=== PATIENT | female | born 1995 | race Caucasian/White ===

== ENCOUNTER 2021-04-19 23:19 | Emergency (ER) | payer MEDICAID, SELFPAY ==
[2021-04-20 01:23] VITALS: BP 118/60; PULSE 85; RESP 16; TEMP 37.3; O2SAT 100; BMI 33.3
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
[2021-04-20] MEDS: Bacitracin Oint 14 GM TUBE 1 APPL TOPICAL (02:21)
[2021-04-20] MEDS: Acetaminophen 325 MG TABLET 975 MG PO (02:21)
[2021-04-20] MEDS: Ketorolac Tromethamine 15 MG/ML VIAL IM (02:21)
--- NOTE | 2021-04-20 02:36 | PC.NURSE ---
per md instructions, right leg wrapped with keanu wrap after covering with bacitracin and telfa bandages.
== END 2021-04-20 03:27 | disposition home or self-care (01) ==
PROVIDERS: Emergency Provider Student in an Organized Health Care Education/Training Program
DX: T21.21XA Burn of second degree of chest wall, initial encounter (principal); T24.201A Burn of second degree of unspecified site of right lower limb, except ankle and foot, initial encounter; T31.0 Burns involving less than 10% of body surface; X12.XXXA Contact with other hot fluids, initial encounter; Y93.9 Activity, unspecified; Y92.9 Unspecified place or not applicable; Y99.9 Unspecified external cause status
CPT/HCPCS: 96372; 99283; 99284; J1885

== ENCOUNTER 2021-04-27 12:16 | Inpatient (IN) | payer MEDICAID, SELFPAY ==
[2021-04-27] VITALS (8 sets, daily range): BP systolic 110–146; BP diastolic 63–76; PULSE 60–98; RESP 14–18; TEMP 35.8–37.1; O2SAT 98–100; BMI 34.9
--- NOTE | ~2021-04-27 | US_ITS ---
EXAMINATION: US VENOUS ULTRASOUND WITH DOPPLER LOWER EXTREMITY, RIGHT CLINICAL INFORMATION: Edema. Pain. Skin changes. COMPARISON: None TECHNIQUE: Ultrasound of the deep veins is performed from the hip to the calf with compression sonography and color and pulse Doppler assessment. Spectral analysis with color-flow imaging is performed. FINDINGS: There is normal venous compression and respiratory variation and augmented flow. The visualized common femoral vein, superficial femoral vein, profunda femoral vein, popliteal vein, and the trifurcation region shows no evidence of deep venous thrombosis. There is no significant popliteal fossa cyst. There are morphologically normal-appearing lymph node with fatty nathaly in the soft tissues of the right groin and thigh. If the patient's symptoms persist, followup ultrasound in 5 days 7 days might be of value to exclude proximal propagation from a non-visualized calf vein. US/US venous duplex LE RT IMPRESSION: No DVT demonstrated in the right lower extremity.
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
[2021-04-27] MEDS: HYDROcodone Bit/Acetam 5/325 TABLET 1 TAB PO (14:13)
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
[2021-04-27 15:14] LABS: MANUAL DIFF FLAG NO
[2021-04-27 15:16] LABS: Basophils Percent Auto 0.3 % (0-2); Eosinophils Absolute Auto 0.1 X10*3/uL (0.0-0.4); Eosinophils Percent Auto 0.6 % (0-4); Hematocrit 38.8 % (37-47); Hemoglobin 13.1 g/dl (12.0-16.0); Imm Gran Abs Auto 0.05 X10*3/uL (0.00-0.03); Imm Gran Pct Auto 0.5 % (0.0-0.4); Lymphocytes Absolute Auto 1.6 X10*3/uL (1.2-4.9); Lymphocytes Percent Auto 16.9 % (20-40); Mean Corpuscular HGB Conc 33.8 g/dl (31.0-35.0); Mean Corpuscular Volume 91.9 fL (80-98); Mean Platelet Volume 9.3 fL (9.4-12.3); Monocytes Absolute Auto 0.7 X10*3/uL (0.1-1.2); Monocytes Percent Auto 7.7 % (2-11); Platelet Count 359 X10*3/uL (160-400); Red Blood Count 4.22 X10*6/uL (4.20-5.50); White Blood Count 9.5 X10*3/uL (4.8-10.8)
--- NOTE | 2021-04-27 15:21 | PHA.MEDREC ---
Pharmacy Consult ? Medication Reconciliation Pharmacy has completed the medication reconciliation. Patient currently on an ABX, cephalexin 500mg Q12Hr but unsure how many days left. No other remarkable issue for the provider to address. Karly Amador, PharmD
[2021-04-27] MEDS: Piperacillin Sodium/Tazobactam 3.375 GM in 0.9 % Sodium Chloride 50 ML IV ×2 (15:30→20:39)
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
[2021-04-27 15:38] LABS: Lactic Acid 3.8 mmol/L (0.5-2.0)
[2021-04-27 15:40] LABS: Alanine Aminotransferase 8 U/L (0-31); Albumin Level 4.3 g/dL (3.5-5.0); Alkaline Phosphatase 60 U/L (39-117); Anion Gap 18 (12-20); Aspartate Amino Transferase 13 U/L (5-31); Bilirubin Direct < 0.2 mg/dL (0.0-0.5); Bilirubin Total 0.3 mg/dL (0.0-1.0); Blood Urea Nitrogen 13 mg/dL (9-16); Calcium 9.8 mg/dL (8.4-10.2); Carbon Dioxide 22 mmol/L (22-29); Chloride 101 mmol/L (96-108); Estimated Glomerular Filt Rate > 60; Glucose Random 83 mg/dL (60-115); Magnesium 1.9 mg/dL (1.6-2.6); Potassium 4.2 mmol/L (3.3-5.1); Sodium 137 mmol/L (135-145); Total Protein 7.6 g/dL (6.5-8.0)
[2021-04-27] MEDS: Morphine Sulfate 4 MG/ML CARTRIDGE IVPUSH (15:46)
[2021-04-27] MEDS: 0.9 % Sodium Chloride 1,000 ML 999 ML IVCONT (15:46)
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
[2021-04-27 15:59] LABS: COVID-19 Test Negative (Negative); IDNOW Serial# 9DD0AD1C
[2021-04-27] MEDS: Silver Sulfadiazine 1 % Cream 20 GM TUBE 1 APPL TOPICAL (16:19)
--- NOTE | 2021-04-27 16:43 | PC.NURSE ---
Report called to YAQUELIN Argueta. Pt will bed going to room 371.
[2021-04-27 17:12] LABS: Reflex Lactate? Lactic Acid Added
--- NOTE | 2021-04-27 17:20 | PC.NURSE ---
Patient moved to room 371 via stretcher. Pt is alert and in no distress
[2021-04-27 18:48] LABS: ~Lactic Acid-LAB USE ONLY 2.6 mmol/L (0.5-2.0)
[2021-04-27 20:21] LABS: Reflex Lactate? 2 Y
[2021-04-27] MEDS: traZODone HCL 50 MG TABLET PO (20:39)
[2021-04-27] MEDS: Atorvastatin Calcium 10 MG TABLET PO (20:39)
[2021-04-27] MEDS: LORazepam 1 MG TABLET PO (20:39)
[2021-04-27] MEDS: diphenhydrAMINE HCL 25 MG TABLET 50 MG PO (22:32)
[2021-04-27] MEDS: 0.9 % Sodium Chloride Flush 3 ML SYRINGE IVFLUSH (23:27)
[2021-04-28] VITALS (8 sets, daily range): BP systolic 100–127; BP diastolic 53–60; PULSE 57–73; RESP 14–19; TEMP 36.3–36.5; O2SAT 96–100; BMI 34.9
[2021-04-28] MEDS: Morphine Sulfate 2 MG/ML CARTRIDGE IVPUSH ×4 (01:28→20:22)
[2021-04-28] MEDS: Piperacillin Sodium/Tazobactam 3.375 GM in 0.9 % Sodium Chloride 50 ML IV ×4 (03:09→21:04)
[2021-04-28 06:32] LABS: Hematocrit 35.6 % (37-47); Mean Corpuscular HGB Conc 33.7 g/dl (31.0-35.0); Mean Corpuscular Hemoglobin 30.8 pg (27.0-33.0); Mean Corpuscular Volume 91.3 fL (80-98); Mean Platelet Volume 9.3 fL (9.4-12.3); Platelet Count 350 X10*3/uL (160-400); Red Cell Distribution Width 12.2 % (11.0-16.0); White Blood Count 6.4 X10*3/uL (4.8-10.8)
[2021-04-28 07:21] LABS: Anion Gap 11 (12-20); Blood Urea Nitrogen 13 mg/dL (9-16); Carbon Dioxide 24 mmol/L (22-29); Chloride 105 mmol/L (96-108); Creatinine Clr Calc Pharmacy 134.4; Estimated Glomerular Filt Rate > 60; Glucose Random 102 mg/dL (60-115); Potassium 4.3 mmol/L (3.3-5.1); Sodium 136 mmol/L (135-145)
[2021-04-28] MEDS: Multivitamin TABLET 1 TAB PO (07:27)
[2021-04-28] MEDS: HaloperidoL 5 MG TABLET PO (07:27)
[2021-04-28] MEDS: 0.9 % Sodium Chloride Flush 3 ML SYRINGE IVFLUSH ×3 (07:27→21:05)
[2021-04-28] MEDS: Divalproex Sodium 500 MG TABLET.DR PO (07:27)
[2021-04-28] MEDS: Levothyroxine Sodium 100 MCG TABLET PO (07:27)
[2021-04-28] MEDS: Sertraline HCL 100 MG TABLET PO (07:27)
[2021-04-28 07:39] LABS: Calcium 9.1 mg/dL (8.4-10.2)
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
[2021-04-28] MEDS: Silver Sulfadiazine 1 % Cream 20 GM TUBE 1 APPL TOPICAL (13:29)
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
[2021-04-28] MEDS: traZODone HCL 50 MG TABLET PO (21:04)
[2021-04-28] MEDS: Atorvastatin Calcium 10 MG TABLET PO (21:04)
[2021-04-29 03:07] VITALS: BP 106/56; PULSE 60; RESP 16; TEMP 36.6; O2SAT 97
[2021-04-29] MEDS: Piperacillin Sodium/Tazobactam 3.375 GM in 0.9 % Sodium Chloride 50 ML IV ×2 (03:10→09:24)
[2021-04-29 07:31] VITALS: BP 102/59; PULSE 59; RESP 17; TEMP 36.4; O2SAT 95
[2021-04-29] MEDS: Levothyroxine Sodium 100 MCG TABLET PO (09:22)
[2021-04-29] MEDS: HaloperidoL 5 MG TABLET PO (09:22)
[2021-04-29] MEDS: Multivitamin TABLET 1 TAB PO (09:22)
[2021-04-29] MEDS: Sertraline HCL 100 MG TABLET PO (09:22)
[2021-04-29] MEDS: Divalproex Sodium 500 MG TABLET.DR PO (09:22)
[2021-04-29] MEDS: 0.9 % Sodium Chloride Flush 3 ML SYRINGE IVFLUSH (09:24)
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
[2021-04-29 11:24] VITALS: BP 116/56; PULSE 62; RESP 19; TEMP 36.1; O2SAT 97
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
--- NOTE | 2021-05-01 14:50 | MHC.CM.PN ---
Received telephone call from Sherin of the [employer]. She stated a oral report was never called, so they don't have the case on file. T/W called [phone] again to give verbal report. Case#[id number]
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
== END 2021-04-29 14:36 | disposition home health service (06) | DRG 844 ==
LOC: HO.ED 15:24 → HO.S3 16:03
PROVIDERS: Admitting Provider Internal Medicine; Emergency Provider Emergency Medicine; PCP Internal Medicine; Visit Provider Internal Medicine
DX: T24.001A Burn of unspecified degree of unspecified site of right lower limb, except ankle and foot, initial encounter (principal); L03.115 Cellulitis of right lower limb; T21.01XA Burn of unspecified degree of chest wall, initial encounter; E03.9 Hypothyroidism, unspecified; E78.5 Hyperlipidemia, unspecified; R62.50 Unspecified lack of expected normal physiological development in childhood; Y27.2XXA Contact with hot fluids, undetermined intent, initial encounter; Y93.9 Activity, unspecified; Y92.9 Unspecified place or not applicable; Y99.9 Unspecified external cause status; Z20.822 Contact with and (suspected) exposure to COVID-19; Z79.890 Hormone replacement therapy; Z79.899 Other long term (current) drug therapy
CPT/HCPCS: 36415; 80048; 80076; 83605; 83735; 85025; 85027; 87040; 87635; 93971; 99222; 99231; 99285; J2270; J2543; Q0163

== ENCOUNTER 2021-05-16 10:17 | Outpatient (REF) | payer MEDICAID, SELFPAY ==
[2021-05-16 11:13] LABS: MANUAL DIFF FLAG NO
[2021-05-16 11:25] LABS: Basophils Percent Auto 0.2 % (0-2); Eosinophils Absolute Auto 0.1 X10*3/uL (0.0-0.4); Eosinophils Percent Auto 1.4 % (0-4); Hematocrit 40.1 % (37-47); Hemoglobin 13.3 g/dl (12.0-16.0); Imm Gran Abs Auto 0.02 X10*3/uL (0.00-0.03); Imm Gran Pct Auto 0.3 % (0.0-0.4); Lymphocytes Absolute Auto 1.5 X10*3/uL (1.2-4.9); Lymphocytes Percent Auto 25.7 % (20-40); Mean Corpuscular HGB Conc 33.2 g/dl (31.0-35.0); Mean Corpuscular Hemoglobin 31.1 pg (27.0-33.0); Mean Corpuscular Volume 93.7 fL (80-98); Mean Platelet Volume 10.5 fL (9.4-12.3); Monocytes Absolute Auto 0.5 X10*3/uL (0.1-1.2); Monocytes Percent Auto 9.1 % (2-11); Neutrophils Absolute Auto 3.8 X10*3/uL (2.0-8.3); Neutrophils Percent Auto 63.3 % (45-73); Platelet Count 235 X10*3/uL (160-400); Red Blood Count 4.28 X10*6/uL (4.20-5.50); Red Cell Distribution Width 12.9 % (11.0-16.0); White Blood Count 5.9 X10*3/uL (4.8-10.8)
[2021-05-16 12:15] LABS: Thyroid Stimulating Hormone 0.16 uIU/mL (0.32-4.0)
[2021-05-16 12:30] LABS: Alanine Aminotransferase 12 U/L (0-31); Alkaline Phosphatase 57 U/L (39-117); Anion Gap 14 (12-20); Aspartate Amino Transferase 12 U/L (5-31); Bilirubin Total 0.4 mg/dL (0.0-1.0); Blood Urea Nitrogen 11 mg/dL (9-16); Calcium 8.9 mg/dL (8.4-10.2); Carbon Dioxide 23 mmol/L (22-29); Chloride 106 mmol/L (96-108); Cholesterol 162 mg/dL; Estimated Glomerular Filt Rate > 60; Glucose Random 100 mg/dL (60-115); HDL Cholesterol 48 mg/dL; LDL Cholesterol Calculated 94 mg/dl; Potassium 4.8 mmol/L (3.3-5.1); Sodium 138 mmol/L (135-145); Total Protein 6.7 g/dL (6.5-8.0); Triglycerides 102 mg/dL
== END 2021-05-16 10:18 | disposition home or self-care (01) ==
LOC: HO.LAB 10:17
PROVIDERS: PCP Internal Medicine; Visit Provider Internal Medicine
DX: Z00.01 Encounter for general adult medical examination with abnormal findings (principal); T24.039 Burn of unspecified degree of unspecified lower leg; E03.9 Hypothyroidism, unspecified; E78.00 Pure hypercholesterolemia, unspecified; F31.9 Bipolar disorder, unspecified; G31.84 Mild cognitive impairment of uncertain or unknown etiology; G40.509 Epileptic seizures related to external causes, not intractable, without status epilepticus
CPT/HCPCS: 36415; 80053; 80061; 84443; 85025

== ENCOUNTER 2023-03-29 02:41 | Emergency (ER) | payer MEDICAID, SELFPAY ==
[2023-03-29] VITALS (8 sets, daily range): BP systolic 132–141; BP diastolic 73–87; PULSE 107–116; RESP 17–18; TEMP 36.6; O2SAT 96–98; BMI 32.6
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
[2023-03-29 03:14] LABS: MANUAL DIFF FLAG NO
[2023-03-29 03:18] LABS: Basophils Percent Auto 0.3 % (0-2); Eosinophils Percent Auto 0.2 % (0-4); Hematocrit 38.5 % (37.0-47.0); Imm Gran Abs Auto 0.01 X10*3/uL (0.00-0.03); Imm Gran Pct Auto 0.1 % (0.0-0.4); Lymphocytes Absolute Auto 1.7 X10*3/uL (1.2-4.9); Lymphocytes Percent Auto 19.4 % (20-40); Mean Corpuscular HGB Conc 33.8 g/dl (31.0-35.0); Mean Corpuscular Hemoglobin 29.8 pg (27.0-33.0); Mean Corpuscular Volume 88.3 fL (80.0-98.0); Mean Platelet Volume 9.7 fL (9.4-12.3); Monocytes Absolute Auto 0.7 X10*3/uL (0.1-1.2); Monocytes Percent Auto 7.3 % (2-11); Neutrophils Absolute Auto 6.5 x10*3/uL (2.0-8.3); Neutrophils Percent Auto 72.7 % (45-73); Platelet Count 272 X10*3/uL (160-400); Red Blood Count 4.36 X10*6/uL (4.20-5.50); Red Cell Distribution Width 11.9 % (11.0-16.0); White Blood Count 8.9 X10*3/uL (4.8-10.8)
[2023-03-29] MEDS: Nicotine 14 MG PATCH.TD24 TRANSDERMA (03:23)
[2023-03-29 03:31] LABS: COVID-19 Test Negative (Negative); IDNOW Serial# 6674DD1D
[2023-03-29 03:41] LABS: Alanine Aminotransferase 27 U/L (0-31); Albumin Level 4.1 g/dL (3.5-5.0); Alkaline Phosphatase 83 U/L (39-117); Anion Gap 17 (12-20); Aspartate Amino Transferase 20 U/L (5-31); Bilirubin Total 0.3 mg/dL (0.0-1.0); Blood Urea Nitrogen 9 mg/dL (9-16); Calcium 9.5 mg/dL (8.4-10.2); Carbon Dioxide 21 mmol/L (22-29); Chloride 106 mmol/L (96-108); Creatinine Clr Calc Pharmacy 124.6; Estimated Glomerular Filt Rate > 60; Ethanol < 10 mg/dL; Glucose Random 124 mg/dL (60-115); Sodium 140 mmol/L (135-145); Valproate < 12.5 mcg/mL (50.0-100.0)
[2023-03-29] MEDS: LORazepam 1 MG TABLET PO ×2 (03:56→09:27)
[2023-03-29 04:20] LABS: Appearance Urine Clear; Color Urine Yellow; Glucose Urine UA Negative (Negative); Leukocyte Esterase Urine Negative (Negative); Nitrite Urine Negative (Negative); Urine Blood Negative (Negative); Urine Ketones Negative (Negative); Urine Protein Negative (Neg-Trace)
[2023-03-29 04:22] LABS: UPreg QC Valid YES; Urine Pregnancy NEGATIVE (NEGATIVE)
[2023-03-29 04:30] LABS: Amphetamine Screen Urine Not Detected (Not Detect); Barbiturates, Urine Not Detected (Not Detect); Benzodiazepines Screen Urine Not Detected (Not Detect); Cannabinoid Screen Urine Not Detected (Not Detect); Cocaine Screen Urine Not Detected (Not Detect); Fentanyl, urine POSITIVE (Not Detect); Opiate Screen Urine Not Detected (Not Detect); Phencyclidine Screen Urine Not Detected (Not Detect)
[2023-03-29] MEDS: diphenhydrAMINE HCL 50 MG/ML VIAL IM (04:50)
[2023-03-29] MEDS: LORazepam 2 MG/ML VIAL IM (04:50)
[2023-03-29] MEDS: Haloperidol Lactate 5 MG/ML VIAL IM (04:50)
--- NOTE | 2023-03-29 05:19 | PC.NURSE ---
Staff reported that patient was trying to cut her fore arm with pitcher lid, refused to handover the the lid, combative with staff member, provider notified/ordered physical and chemical restraint, Ativan 2 mg IM, Benadryl 50 mg IM, and Haldol 5 mg IM administered at 0450 pending effect, VSS, communication challenging due to non availability of burnt lime drawer at this time, patient is on 1:1 for per safety protocol, Ativan 1 mg PO administered at 0356 had no effect, behavior unpredictable with labile affect, care consult ordered/pending evaluation, will continue to monitor.
--- NOTE | 2023-03-29 06:09 | PC.NURSE ---
Patient in bed appears sleeping, Restraint discontinued at 0605, ROM intact, patient doesn't want to share her information to any family members, med rec completed/pending provider's approval, will continue to monitor.
[2023-03-29] MEDS: Atorvastatin Calcium 10 MG TABLET PO (09:27)
[2023-03-29] MEDS: HaloperidoL 5 MG TABLET PO (09:27)
[2023-03-29] MEDS: Sertraline HCL 100 MG TABLET PO (09:27)
[2023-03-29] MEDS: Multivitamin TABLET 1 TAB PO (09:27)
[2023-03-29] MEDS: Divalproex Sodium 250 MG TABLET.DR PO (09:27)
--- NOTE | 2023-03-29 10:00 | PHA.MEDREC ---
Pharmacy Consult ? Medication Reconciliation Pharmacy has completed the medication reconciliation.
== END 2023-03-29 14:31 | disposition home or self-care (01) ==
PROVIDERS: Emergency Provider Emergency Medicine
DX: F32.A Depression, unspecified (principal); F41.9 Anxiety disorder, unspecified; Z20.822 Contact with and (suspected) exposure to COVID-19; F88 Other disorders of psychological development; Z79.899 Other long term (current) drug therapy
CPT/HCPCS: 36415; 80053; 80164; 80307; 81003; 81025; 85025; 87635; 96372; 99285; J1200; J2060; S9485

== ENCOUNTER 2023-05-11 01:45 | Emergency (ER) | payer MEDICAID, SELFPAY ==
[2023-05-11 01:47] VITALS: BP 186/88; PULSE 82; RESP 18; TEMP 37; O2SAT 100; BMI 42.5
--- NOTE | 2023-05-11 02:16 | PC.NURSE ---
c/o abd pain since yesterday night denies constipation/diarrhea admits to vomiting x1 and nausea pt states she ate a sandwich that had deli meat that was many hours old no apparent distress alert and oriented able to make needs known ambulates safely/independently parents at bedside
--- NOTE | 2023-05-11 03:13 | ED.ABDPAIN ---
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 Patient states that she then vomited in the parking lot and feels much better and denies any further discomfort at this time. Related Data Home Medications Medication Instructions Recorded Confirmed trazodone 50 mg tablet 50 mg PO BEDTIME 04/27/21 03/29/23 amitriptyline 10 mg tablet 10 mg PO BEDTIME 03/29/23 03/29/23 atorvastatin 10 mg tablet 10 mg PO DAILY 03/29/23 03/29/23 divalproex 250 mg tablet,delayed 250 mg PO BID 03/29/23 03/29/23 release haloperidol 5 mg tablet 5 mg PO BID 03/29/23 03/29/23 hydroxyzine pamoate 50 mg capsule 50 mg PO BID PRN Anxiety 03/29/23 03/29/23 levothyroxine 100 mcg tablet 100 mcg PO DAILY@0600 03/29/23 03/29/23 lorazepam 1 mg tablet 1 mg PO TID 03/29/23 03/29/23 multivitamin 1 tab PO DAILY 03/29/23 03/29/23 sertraline 100 mg tablet 100 mg PO DAILY 03/29/23 03/29/23 Allergies Allergy/AdvReac Type Severity Reaction Status Date / Time No Known Allergies Allergy Verified 04/27/21 12:22 Review of Systems Review of Systems Pertinent positives and negatives as stated in HPI PMFSH Past Medical History Source: nursing notes reviewed Medical History Cognitive developmental delay HLD (hyperlipidemia) Hypothyroid Mood disorder Social History Social History Household Members: Family Housing: Apartment Do you presently have visiting nurse or other home services: No Alcohol intake: never Patient Tobacco Use Status: Never used Tobacco Substance Use Type: [employer] Advance Directives: No Advance Directives Information Provided: No service: No Current occupational status: disabled Physical Exam ED Vital Signs: Vital Signs - 24 hr 05/11/23 01:47 Temperature 98.6 F Pulse Rate 82 Respiratory Rate 18 Blood Pressure 186/88 H Pulse Oximetry 100 Oxygen Delivery Method Room Air BMI result Body Mass Index 42.5 VITAL SIGNS: Reviewed. GENERAL: Well developed, well nourished, in no acute distress. HEAD: Normocephalic/atraumatic EYES: PERRLA, EOMI EARS: Ext canals without abnormality NOSE: Nares patent bilateral OROPHARYNX: no oral lesions noted, posterior pharynx clear NECK: Supple, no adenopathy LUNGS: Normal breath sounds. No adventitious sounds or accessory muscle use. SpO2<100> CARDIOVASCULAR: Regular rate and rhythm without noted murmurs ABDOMEN: Soft, non-tender, non-distended with bowel sounds. MUSCULOSKELETAL: No tenderness, deformities, or effusions noted on gross inspection. EXTREMITIES: No cyanosis, clubbing or edema. SKIN: Inspection of the skin reveals no rashes NEUROLOGIC: Alert and oriented x 4. Strength and sensation to light touch were grossly intact x 4. Medical Decision Making Medical Decision Making MDM Narrative: This is a 27-year-old female with history and clinical presentation most consistent with contaminated food. This was sudden onset and after vomiting patient states she is feeling much better and is otherwise hemodynamically stable, afebrile. I did review the laboratory studies which are negative for evidence of leukocytosis/left shift/anemia and chemistries are grossly within normal limits with a urinalysis negative for evidence of UTI. It radiates EG is negative. Patient is otherwise stable for discharge to home. Patient is noted tolerate oral intake prior to discharge. Differential Diagnosis Please see the discussion above Lab Data Please see the discussion above 05/11/23 02:13 05/11/23 02:13 Labs: Lab Results 05/11/23 05/11/23 05/11/23 Range/Units 02:13 02:13 02:13 WBC 6.5 (4.8-10.8) X10*3/uL RBC 4.18 L (4.20-5.50) X10*6/uL Hgb 12.6 (12.0-16.0) g/dl Hct 38.1 (37.0-47.0) % MCV 91.1 (80.0-98.0) fL MCH 30.1 (27.0-33.0) pg MCHC 33.1 (31.0-35.0) g/dl RDW 12.5 (11.0-16.0) % Plt Count 264 (160-400) X10*3/uL MPV 9.8 (9.4-12.3) fL Immature Gran % (Auto) 0.3 (0.0-0.4) % Neut % (Auto) 56.7 (45-73) % Lymph % (Auto) 33.9 (20-40) % [place] % (Auto) 8.3 (2-11) % Eos % (Auto) 0.5 (0-4) % Baso % (Auto) 0.3 (0-2) % Lymph # (Auto) 2.2 (1.2-4.9) X10*3/uL [place] # (Auto) 0.5 (0.1-1.2) X10*3/uL Eos # (Auto) 0.0 (0.0-0.4) X10*3/uL Baso # (Auto) 0.0 (0.0-0.2) X10*3/uL Abs Immat Gran (auto) 0.02 (0.00-0.03) X10*3/uL Absolute Neuts (auto) 3.7 (2.0-8.3) x10*3/uL Absolute Nucleated RBC 0.000 (0.0-0.012) X10*3/uL Nucleated RBC % (auto) 0.0 (0.0-0.2) /100WBC Sodium 142 (135-145) mmol/L Potassium 4.6 (3.3-5.1) mmol/L Chloride 107 (96-108) mmol/L Carbon Dioxide 25 (22-29) mmol/L Anion Gap 15 (12-20) BUN 12 (9-16) mg/dL Creatinine 0.76 (0.5-1.4) mg/dL Estim Creat Clear Calc 131.6 Estimated GFR > 60 Random Glucose 108 (60-115) mg/dL Calcium 9.8 (8.4-10.2) mg/dL Total Bilirubin 0.2 (0.0-1.0) mg/dL AST 19 (5-31) U/L ALT 26 (0-31) U/L Alkaline Phosphatase 83 (39-117) U/L Total Protein 7.1 (6.5-8.0) g/dL Albumin 4.0 (3.5-5.0) g/dL Lipase 17 (8-78) U/L Beta HCG, Quant < 2 mIU/mL Urine Color Urine Appearance Urine pH (5.0-9.0) Ur Specific [place] (1.005-1.025) Urine Protein (Neg-Trace) mg/dL Urine Glucose (UA) (Negative) mg/dL Urine Ketones (Negative) mg/dL Urine Blood (Negative) Urine Nitrite (Negative) Ur Leukocyte Esterase (Negative) 05/11/23 Range/Units 02:34 WBC (4.8-10.8) X10*3/uL RBC (4.20-5.50) X10*6/uL Hgb (12.0-16.0) g/dl Hct (37.0-47.0) % MCV (80.0-98.0) fL MCH (27.0-33.0) pg MCHC (31.0-35.0) g/dl RDW (11.0-16.0) % Plt Count (160-400) X10*3/uL MPV (9.4-12.3) fL Immature Gran % (Auto) (0.0-0.4) % Neut % (Auto) (45-73) % Lymph % (Auto) (20-40) % [place] % (Auto) (2-11) % Eos % (Auto) (0-4) % Baso % (Auto) (0-2) % Lymph # (Auto) (1.2-4.9) X10*3/uL [place] # (Auto) (0.1-1.2) X10*3/uL Eos # (Auto) (0.0-0.4) X10*3/uL Baso # (Auto) (0.0-0.2) X10*3/uL Abs Immat Gran (auto) (0.00-0.03) X10*3/uL Absolute Neuts (auto) (2.0-8.3) x10*3/uL Absolute Nucleated RBC (0.0-0.012) X10*3/uL Nucleated RBC % (auto) (0.0-0.2) /100WBC Sodium (135-145) mmol/L Potassium (3.3-5.1) mmol/L Chloride (96-108) mmol/L Carbon Dioxide (22-29) mmol/L Anion Gap (12-20) BUN (9-16) mg/dL Creatinine (0.5-1.4) mg/dL Estim Creat Clear Calc Estimated GFR Random Glucose (60-115) mg/dL Calcium (8.4-10.2) mg/dL Total Bilirubin (0.0-1.0) mg/dL AST (5-31) U/L ALT (0-31) U/L Alkaline Phosphatase (39-117) U/L Total Protein (6.5-8.0) g/dL Albumin (3.5-5.0) g/dL Lipase (8-78) U/L Beta HCG, Quant mIU/mL Urine Color Yellow Urine Appearance Clear Urine pH 6.5 (5.0-9.0) Ur Specific [place] 1.010 (1.005-1.025) Urine Protein Negative (Neg-Trace) mg/dL Urine Glucose (UA) Negative (Negative) mg/dL Urine Ketones Negative (Negative) mg/dL Urine Blood Negative (Negative) Urine Nitrite Negative (Negative) Ur Leukocyte Esterase Negative (Negative) Discharge Plan Discharge Clinical Impression: Food poisoning Patient Disposition: Home, Self-Care Instructions: Food Poisoning (ED) Additional Instructions: Regrese a la radha de emergencias si los s?ntomas empeoran. Return to the ER for any worsening symptoms. Prescriptions: No Action trazodone 50 mg Tablet 50 mg PO BEDTIME multivitamin Tablet 1 tab PO DAILY haloperidol 5 mg tablet 5 mg PO BID divalproex 250 mg tablet,delayed release (DR/EC) 250 mg PO BID atorvastatin 10 mg tablet 10 mg PO DAILY sertraline 100 mg tablet 100 mg PO DAILY hydroxyzine pamoate 50 mg capsule 50 mg PO BID PRN (Reason: Anxiety) amitriptyline 10 mg tablet 10 mg PO BEDTIME lorazepam 1 mg tablet 1 mg PO TID levothyroxine 100 mcg tablet 100 mcg PO DAILY@0600 Print Language: Macedonian
--- NOTE | 2023-05-11 03:31 | PC.NURSE ---
warm bath wipes given to pt to clean and dry from vomitus episode
[2023-05-11 03:44] VITALS: BP 128/72; PULSE 67; RESP 19; TEMP 37; O2SAT 99
--- NOTE | 2023-05-11 03:51 | PC.NURSE ---
denies pain at this time
--- NOTE | 2023-05-11 03:51 | PC.NURSE ---
Discharge instructions given and explained to pt No apparent distress aox4 All of pt's questions answered Ambulates safely and independently
== END 2023-05-11 03:53 | disposition home or self-care (01) ==
PROVIDERS: Emergency Provider Student in an Organized Health Care Education/Training Program
DX: A05.9 Bacterial foodborne intoxication, unspecified (principal); E78.5 Hyperlipidemia, unspecified; Z79.899 Other long term (current) drug therapy
CPT/HCPCS: 36415; 80053; 81003; 83690; 84702; 85025; 99283; 99284

== ENCOUNTER 2023-09-12 10:00 | Outpatient (REF) | payer MEDICAID, SELFPAY ==
[2023-09-12 11:13] LABS: Valproate 21.1 mcg/mL (50.0-100.0)
[2023-09-12 11:18] LABS: Alanine Aminotransferase 24 U/L (0-31); Albumin Level 4.1 g/dL (3.5-5.0); Alkaline Phosphatase 77 U/L (39-117); Aspartate Amino Transferase 18 U/L (5-31); Bilirubin Direct 0.1 mg/dL (0.0-0.5); Bilirubin Total 0.3 mg/dL (0.0-1.0); Total Protein 7.4 g/dL (6.5-8.0)
== END 2023-09-12 10:01 | disposition home or self-care (01) ==
LOC: HO.LAB 10:00
PROVIDERS: Visit Provider Nurse Practitioner
DX: Z79.899 Other long term (current) drug therapy (principal)
CPT/HCPCS: 36415; 80076; 80164

== ENCOUNTER 2024-03-25 14:51 | Emergency (ER) | payer MEDICAID, SELFPAY ==
--- NOTE | ~2024-03-25 | XR_ITS ---
EXAMINATION: XR CHEST CLINICAL INFORMATION: chest pain and abnormal heart rate. COMPARISON: None. TECHNIQUE: PA and lateral views of the chest were obtained. FINDINGS: The cardiac and mediastinal contours is normal. There is no pulmonary vascular congestion. There is no acute airspace disease or pleural effusion. XR/XR chest 2V IMPRESSION: Normal chest.
--- NOTE | 2024-03-25 14:53 | ECG_ITS ---
Test Reason : CHEST PAIN Blood Pressure : / mmHG Vent. Rate : 106 BPM Atrial Rate : 106 BPM P-R Int : 124 ms QRS Dur : 084 ms QT Int : 338 ms P-R-T Axes : 050 024 -13 degrees QTc Int : 448 ms Sinus tachycardia Nonspecific T wave abnormality Abnormal ECG No previous ECGs available Referred By: Luis E Braun Electronically Signed By:ABBY DEGROOT MD
[2024-03-25 15:02] VITALS: BP 137/94; PULSE 112; RESP 14; TEMP 36.7; O2SAT 96; BMI 43.6
--- NOTE | 2024-03-25 15:04 | ED_ITS ---
HPI - General Adult General Chief complaint: Chest Pain Stated complaint: Chest pain Time Seen by Provider: 03/25/24 18:22 Source: patient and RN notes reviewed Mode of arrival: ambulatory Limitations: no limitations History of Present Illness ED Provider: Moriah Hoyt PA-C HPI narrative: This is a 28-year-old female, with a history of hypothyroidism, hyperlipidemia, and mood disorder, who presents emergency department with complaints of sudden onset left-sided chest pain which started 2 hours prior to arrival. Patient states that she developed a sharp left-sided pleuritic chest pain which occurred after eating lunch. She also states that she felt as though her heart was racing - states that upon arrival this feeling has since resolved but is still experiencing pleuritic chest pain. She states that the pain has been constant does not radiate. She states that she does not want to take deep breaths as this causes her to have worsening symptoms. Denies history of similiar symptoms in the past. She denies any fevers, chills, cough, abdominal pain, nausea, vomiting or diarrhea. She does smoke cigarettes. Denies any recent surgery, hospitalizations or travel. Denies history of blood clots. She has not on control. Denies family medical history of clotting disorders. Denies family medical history of cardiac problems. No other complaints or concerns at this time. MD complaint: Pleuritic chest pain Onset (ago): hour(s) Radiation: non-radiation Severity: moderate Quality: aching Pain Consistency: constant Relieving factors: none Exacerbating factors: none Associated symptoms: denies other symptoms Treatments prior to arrival: none Related Data Home Medications ?Medication ?Instructions ?Recorded ?Confirmed trazodone 50 mg tablet 50 mg PO BEDTIME 04/27/21 03/29/23 amitriptyline 10 mg tablet 10 mg PO BEDTIME 03/29/23 03/29/23 atorvastatin 10 mg tablet 10 mg PO DAILY 03/29/23 03/29/23 divalproex 250 mg tablet,delayed 250 mg PO BID 03/29/23 03/29/23 release haloperidol 5 mg tablet 5 mg PO BID 03/29/23 03/29/23 hydroxyzine pamoate 50 mg capsule 50 mg PO BID PRN Anxiety 03/29/23 03/29/23 levothyroxine 100 mcg tablet 100 mcg PO DAILY@0600 03/29/23 03/29/23 lorazepam 1 mg tablet 1 mg PO TID 03/29/23 03/29/23 multivitamin 1 tab PO DAILY 03/29/23 03/29/23 sertraline 100 mg tablet 100 mg PO DAILY 03/29/23 03/29/23 Allergies Allergy/AdvReac Type Severity Reaction Status Date / Time No Known Allergies Allergy Verified 03/25/24 15:07 Review of Systems 2 Review of Systems: Yes all other systems are reviewed and are negative Constitutional: Constitutional: Reports as per [facility] Past Medical History Attestation statement: The following information was validated with the patient. Medical History Mood disorder HLD (hyperlipidemia) Hypothyroid Cognitive developmental delay Social History Social History Household Members: Family Housing: Apartment Do you presently have visiting nurse or other home services: No Alcohol intake: never Patient Tobacco Use Status: Never used Tobacco Substance Use Type: Club/[employer] Drugs Advance Directives: No Advance Directives Information Provided: No Do you have a plan to hurt others: No Plan service: No Current occupational status: disabled Physical Exam ED Vital Signs: Vital Signs - 24 hr 03/25/24 15:02 03/25/24 19:27 03/25/24 21:22 Temperature 98.0 F 98.2 F 98.4 F Pulse Rate 112 H 89 86 Respiratory Rate 14 16 18 Blood Pressure 137/94 H 119/63 136/81 Pulse Oximetry 96 95 98 Oxygen Delivery Method Room Air Room Air Room Air 03/25/24 21:23 Temperature 98.4 F Pulse Rate 86 Respiratory Rate 18 Blood Pressure 136/81 Pulse Oximetry 98 Oxygen Delivery Method Room Air BMI result Body Mass Index 43.6 Const General: cooperative, comfortable and no acute distress Orientation/consciousness: patient oriented x3 Limitations: no limitations HENMT Head: Yes normal to inspection, Yes normocephalic and Yes atraumatic Ears: hearing grossly normal bilaterally General nose exam: Normal external nose present Face and sinus: Yes normal facial exam Mouth: Normal oral and palatal mucosa present, oropharynx normal and moist mucous membranes Throat: Yes posterior oropharynx normal Eyes General: appearance normal, both eyes and all related structures Eyelids: Yes eyelids normal Conjunctivae: conjunctivae normal Sclerae: sclerae normal Pupils: Equal, round and reactive pupils present EOM: EOMs intact bilaterally Neck Neck: Yes normal visual inspection, Yes full ROM and Yes no lymphadenopathy Lymphatic: no lymphadenopathy noted Chest Other: Reproducible left-sided chest pain with palpation. No flail chest, no obvious deformity or swelling. No erythema. Chest palpation & inspection: normal inspection of the chest Resp Effort & Inspection: normal respiratory effort and able to speak in complete sentences Auscultation: clear to auscultation bilaterally, no crackles, no rales, no rhonchi and no wheezes Cardio Rate: regular rate Rhythm: regular rhythm Heart sounds: S1 normal heart sound present and S2 normal heart sound present GI Inspection: Yes normal to inspection Skin General skin exam: no rashes or lesions noted Trauma: no lacerations or abrasions Wounds: no wounds Neuro General: patient oriented x3 and moves all extremities Cranial nerves: Yes Equal, round and reactive pupils present Extrem General: Yes normal to inspection Right upper extremity: normal to inspection Left upper extremity: normal to inspection Right lower extremity: normal to inspection Left lower extremity: normal to inspection Course Course Course Narrative: RME- 28 year old female with history of obesity, HLD, hypothyroid, mood disorder presents for evaluation of tachycardia and chest pain. Symptoms started about 2 hours ago. Plan for EKG, labs, chest x-ray. Reevaluation(s) Reevaluation #1: D-dimer negative, 2nd troponin flat. Patient has a heart score of 0 therefore cardiac etiology is unlikely. Symptoms likely musculoskeletal in nature. Patient no longer tachycardic, patient is feeling much better after receiving ibuprofen and Ativan. Workup today reassuring. Discussed findings with patient, family, with dental assistant at bedside. Patient given return precautions. She understands agrees with plan. Patient stable for discharge. Medications Administered Discontinued Medications Generic Name Dose Route Start Last Admin Trade Name Freq PRN Reason Stop Dose Admin Ibuprofen 600 mg 03/25/24 20:46 03/25/24 20:52 Ibuprofen 600 Mg Tablet PO 03/25/24 20:47 600 mg ONCE ONE Administration Lorazepam 1 mg 03/25/24 20:43 03/25/24 20:52 Lorazepam 1 Mg Tablet PO 03/25/24 20:44 1 mg ONCE ONE Administration Medical Decision Making Medical Decision Making [facility] Narrative: This is a 28-year-old female, with a history of mood disorder, hyperlipidemia, and hypothyroidism, who presents emergency department complaints of atraumatic left-sided pleuritic chest pressure which occurred after eating lunch. She also reports episode of tachycardia. On arrival, patient tachycardic at 112 beats per minute, mildly hypertensive at 137/94, all other vital signs within normal limits. Patient is anxious appearing, otherwise appears to be in no acute distress. She is speaking in full sentences. She has no cardiac history. She has a smoker, otherwise no other risk factors to suggest PE. Given pleuritic chest pain as well as tachycardia, will obtain D-dimer for evaluation. EKG, chest x-ray, and labs were also obtained. Differential Diagnosis Differential Diagnoses: The differential diagnosis associated with the presentation includes ACS-unlikely, SVT, dehydration, electrolyte derangement, PE, pneumothorax- unlikely, thyroid storm Admission/Observation Consideration of admission/observation: Escalation of care including admission/observation considered Escalation of care including admission/observation considered however given workup today not warranted at this time. Lab Data MDM Lab Attestation statement: I reviewed the patient's lab results. No leukocytosis, stable H&H, mild hyperglycemia at 130, initial troponin less than 2.7. TSH mildly elevated at 4.64 consistent with hypothyroidism 03/25/24 15:35 03/25/24 15:35 Labs: Lab Results 03/25/24 03/25/24 03/25/24 Range/Units 15:34 15:35 19:18 WBC 7.3 (4.8-10.8) X10*3/uL RBC 4.51 (4.20-5.50) X10*6/uL Hgb 13.5 (12.0-16.0) g/dl Hct 39.9 (37.0-47.0) % MCV 88.5 (80.0-98.0) fL MCH 29.9 (27.0-33.0) pg MCHC 33.8 (31.0-35.0) g/dl RDW 12.3 (11.0-16.0) % Plt Count 274 (160-400) X10*3/uL MPV 9.6 (9.4-12.3) fL Immature Gran % (Auto) 0.4 (0.0-0.4) % Neut % (Auto) 65.8 (45-73) % Lymph % (Auto) 24.6 (20-40) % [place] % (Auto) 8.3 (2-11) % Eos % (Auto) 0.5 (0-4) % Baso % (Auto) 0.4 (0-2) % Lymph # (Auto) 1.8 (1.2-4.9) X10*3/uL [place] # (Auto) 0.6 (0.1-1.2) X10*3/uL Eos # (Auto) 0.0 (0.0-0.4) X10*3/uL Baso # (Auto) 0.0 (0.0-0.2) X10*3/uL Abs Immat Gran (auto) 0.03 (0.00-0.03) X10*3/uL Absolute Neuts (auto) 4.8 (2.0-8.3) x10*3/uL Absolute Nucleated RBC 0.000 (0.0-0.012) X10*3/uL Nucleated RBC % (auto) 0.0 (0.0-0.2) /100WBC PT 13.0 (11.1-13.3) SEC INR 1.1 (0.9-1.1) D-Dimer High Sensitivty < 150 NG/ML Sodium 138 (135-145) mmol/L Potassium 4.4 (3.3-5.1) mmol/L Chloride 103 (96-108) mmol/L Carbon Dioxide 22 (22-29) mmol/L Anion Gap 17 (12-20) BUN 9 (9-16) mg/dL Creatinine 0.83 (0.5-1.4) mg/dL Estim Creat Clear Calc 125.6 Estimated GFR > 60 Random Glucose 130 H (60-115) mg/dL Calcium 9.8 (8.4-10.2) mg/dL Total Bilirubin 0.4 (0.0-1.0) mg/dL AST 21 D (5-31) U/L ALT 30 (0-31) U/L Alkaline Phosphatase 80 D (39-117) U/L Troponin I High Sens < 2.7 < 2.7 (<3.5-17.0) ng/L B-Natriuretic Peptide < 10 (<100) pg/mL Total Protein 7.7 (6.5-8.0) g/dL Albumin 4.2 (3.5-5.0) g/dL Lipase 16 (8-78) U/L TSH 4.64 H (0.32-4.0) uIU/mL Independent Interpretation I performed an independent interpretation of an: EKG Interpretation: Sinus tachycardia at 106BPM, [place] interval 124, QTC 448, no ST elevation or depression Radiology Impression Discussion of test interpretation with radiology: I have reviewed the radiologist's reading. Radiologist Impression: EXAMINATION: XR CHEST CLINICAL INFORMATION: chest pain and abnormal heart rate. COMPARISON: None. TECHNIQUE: PA and lateral views of the chest were obtained. FINDINGS: The cardiac and mediastinal contours is normal. There is no pulmonary vascular congestion. There is no acute airspace disease or pleural effusion. XR/XR chest 2V IMPRESSION: Normal chest. Dictated By: Dimitrios Gaffney MD Independent Historian Clinical information obtained from an independent historian. History obtained from or confirmed by: Parent Scores Heart Score History: -0- slightly suspicious ECG: -0- normal Age: -0- < or = 45 Risk factory: -0- no risk factors known Troponin: -0- < or = normal limit Score: 0 Risk: 1.7% Discharge Plan Discharge Clinical Impression: Atypical chest pain Patient Disposition: Home, Self-Care Instructions: Chest Pain (ED) Additional Instructions: You were seen in the emergency department due to chest pain. Your workup today was normal. Your EKG was normal, your blood work was normal. Please follow-up with your primary care physician regarding this visit. You likely have inflammation your chest wall which is causing you to have your symptoms. Take ibuprofen as needed for pain. Drink plenty of fluids get plenty of rest. If any new or worsening symptoms occur including but not limited to worsening chest pain, shortness of breath, please return for re-evaluation. Prescriptions: No Action trazodone 50 mg Tablet 50 mg PO BEDTIME multivitamin Tablet 1 tab PO DAILY haloperidol 5 mg tablet 5 mg PO BID divalproex 250 mg tablet,delayed release (DR/EC) 250 mg PO BID atorvastatin 10 mg tablet 10 mg PO DAILY sertraline 100 mg tablet 100 mg PO DAILY hydroxyzine pamoate 50 mg capsule 50 mg PO BID PRN (Reason: Anxiety) amitriptyline 10 mg tablet 10 mg PO BEDTIME lorazepam 1 mg tablet 1 mg PO TID levothyroxine 100 mcg tablet 100 mcg PO DAILY@0600 Interventions: ED Discharge Assessment Last Done: 03/25/24 21:23 Discharge Date/Time: 03/25/24 21:23 Print Language: Tajik
--- NOTE | 2024-03-25 15:39 | MHC.EDTECH ---
ekg taken and was read by provider ,blood drawn and sent to lab .
[2024-03-25 15:40] LABS: MANUAL DIFF FLAG NO
[2024-03-25 16:51] LABS: Hematocrit 39.9 % (37.0-47.0); Hemoglobin 13.5 g/dl (12.0-16.0); Mean Corpuscular HGB Conc 33.8 g/dl (31.0-35.0); Mean Corpuscular Hemoglobin 29.9 pg (27.0-33.0); Mean Corpuscular Volume 88.5 fL (80.0-98.0); Mean Platelet Volume 9.6 fL (9.4-12.3); Platelet Count 274 X10*3/uL (160-400); Red Blood Count 4.51 X10*6/uL (4.20-5.50); Red Cell Distribution Width 12.3 % (11.0-16.0); White Blood Count 7.3 X10*3/uL (4.8-10.8)
[2024-03-25 16:52] LABS: Basophils Percent Auto 0.4 % (0-2); Eosinophils Percent Auto 0.5 % (0-4); Imm Gran Abs Auto 0.03 X10*3/uL (0.00-0.03); Imm Gran Pct Auto 0.4 % (0.0-0.4); Lymphocytes Absolute Auto 1.8 X10*3/uL (1.2-4.9); Lymphocytes Percent Auto 24.6 % (20-40); Monocytes Absolute Auto 0.6 X10*3/uL (0.1-1.2); Monocytes Percent Auto 8.3 % (2-11); Neutrophils Absolute Auto 4.8 x10*3/uL (2.0-8.3); Neutrophils Percent Auto 65.8 % (45-73)
[2024-03-25 17:30] LABS: Troponin-I High Sensitivity < 2.7 ng/L (<3.5-17.0)
[2024-03-25 17:31] LABS: Anion Gap 17 (12-20); Blood Urea Nitrogen 9 mg/dL (9-16); Carbon Dioxide 22 mmol/L (22-29); Chloride 103 mmol/L (96-108); Potassium 4.4 mmol/L (3.3-5.1); Sodium 138 mmol/L (135-145)
[2024-03-25 17:32] LABS: Alanine Aminotransferase 30 U/L (0-31); Aspartate Amino Transferase 21 U/L (5-31); Bilirubin Total 0.4 mg/dL (0.0-1.0); Calcium 9.8 mg/dL (8.4-10.2); Creatinine Clr Calc Pharmacy 125.6; Estimated Glomerular Filt Rate > 60; Glucose Random 130 mg/dL (60-115)
[2024-03-25 17:33] LABS: Albumin Level 4.2 g/dL (3.5-5.0); Alkaline Phosphatase 80 U/L (39-117); Lipase 16 U/L (8-78); Total Protein 7.7 g/dL (6.5-8.0)
[2024-03-25 17:45] LABS: INTERNATIONAL NORM RATIO 1.1 (0.9-1.1)
[2024-03-25 17:49] LABS: B Type Natriuretic Peptide < 10 pg/mL (<100)
[2024-03-25 19:07] LABS: Thyroid Stimulating Hormone 4.64 uIU/mL (0.32-4.0)
[2024-03-25 19:27] VITALS: BP 119/63; PULSE 89; RESP 16; TEMP 36.8; O2SAT 95
[2024-03-25 19:50] LABS: D Dimer High Sensitivity < 150 NG/ML
[2024-03-25] MEDS: Ibuprofen 600 MG TABLET PO (20:52)
[2024-03-25] MEDS: LORazepam 1 MG TABLET PO (20:52)
[2024-03-25 21:02] LABS: Troponin-I High Sensitivity < 2.7 ng/L (<3.5-17.0)
[2024-03-25 21:22] VITALS: BP 136/81; PULSE 86; RESP 18; TEMP 36.9; O2SAT 98
[2024-03-25 21:23] VITALS: BP 136/81; PULSE 86; RESP 18; TEMP 36.9; O2SAT 98
== END 2024-03-25 21:23 | disposition home or self-care (01) ==
PROVIDERS: Physician Assistant; Physician Assistant Medical; Emergency Provider Emergency Medicine; PCP Internal Medicine
DX: R07.9 Chest pain, unspecified (principal); R00.0 Tachycardia, unspecified; E03.9 Hypothyroidism, unspecified; F39 Unspecified mood [affective] disorder; E78.5 Hyperlipidemia, unspecified; Z79.899 Other long term (current) drug therapy
CPT/HCPCS: 36415; 71046; 80053; 83690; 83880; 84443; 84484; 85025; 85379; 85610; 93005; 99283; 99284

== ENCOUNTER → 2024-03-25 14:53 | Outpatient (BNV) | payer MEDICAID, SELFPAY | PROVIDERS: Emergency Provider Emergency Medicine; PCP Internal Medicine; Visit Provider Internal Medicine Cardiovascular Disease | DX: R00.0 Tachycardia, unspecified (principal); R94.31 Abnormal electrocardiogram [ECG] [EKG] | CPT/HCPCS: 93010 ==

== ENCOUNTER 2024-05-27 11:13 | Emergency (ER) | payer MEDICAID, SELFPAY ==
[2024-05-27 11:26] VITALS: BP 120/62; BP 130/78; PULSE 76; PULSE 78; RESP 16; TEMP 37.4; O2SAT 99; BMI 41.8
[2024-05-27 11:42] LABS: Basophils Percent Auto 0.5 % (0-2); Eosinophils Percent Auto 0.6 % (0-4); Hemoglobin 13.3 g/dl (12.0-16.0); Imm Gran Abs Auto 0.02 X10*3/uL (0.00-0.03); Imm Gran Pct Auto 0.3 % (0.0-0.4); Lymphocytes Absolute Auto 1.8 X10*3/uL (1.2-4.9); Lymphocytes Percent Auto 26.9 % (20-40); MANUAL DIFF FLAG NO; Mean Corpuscular HGB Conc 34.1 g/dl (31.0-35.0); Mean Corpuscular Hemoglobin 30.8 pg (27.0-33.0); Mean Corpuscular Volume 90.3 fL (80.0-98.0); Mean Platelet Volume 9.4 fL (9.4-12.3); Monocytes Absolute Auto 0.6 X10*3/uL (0.1-1.2); Monocytes Percent Auto 8.3 % (2-11); Neutrophils Absolute Auto 4.2 x10*3/uL (2.0-8.3); Neutrophils Percent Auto 63.4 % (45-73); Platelet Count 271 X10*3/uL (160-400); Red Blood Count 4.32 X10*6/uL (4.20-5.50); Red Cell Distribution Width 12.8 % (11.0-16.0); White Blood Count 6.7 X10*3/uL (4.8-10.8)
[2024-05-27 12:04] LABS: Alanine Aminotransferase 26 U/L (0-31); Albumin Level 4.1 g/dL (3.5-5.0); Alkaline Phosphatase 77 U/L (39-117); Anion Gap 17 (12-20); Aspartate Amino Transferase 22 U/L (5-31); Bilirubin Total 0.3 mg/dL (0.0-1.0); Blood Urea Nitrogen 6 mg/dL (9-16); Calcium 9.4 mg/dL (8.4-10.2); Carbon Dioxide 21 mmol/L (22-29); Chloride 105 mmol/L (96-108); Creatinine Clr Calc Pharmacy 154.7; Estimated Glomerular Filt Rate > 60; Glucose Random 133 mg/dL (60-115); Potassium 4.5 mmol/L (3.3-5.1); Sodium 138 mmol/L (135-145); Total Protein 7.3 g/dL (6.5-8.0)
--- NOTE | 2024-05-27 12:13 | ED_ITS ---
HPI - Seizure General Chief Complaint: Seizure Stated Complaint: ? SEIZURE FROM DAY CARE Time Seen by Provider: 05/27/24 11:53 Source: patient and family Mode of arrival: EMS Limitations: no limitations History of Present Illness ED Provider: LOUISA JACOBSON Narrative: 28 yo female with PMH of mood disorder, cognitive delay, HLD, hypothyroidism, here with c/o panic attack after not having anyone to play a game with she has no head trauma, incontinence, she is at baseline per family. She feels fine. It was witnessed. Had similar attack in triage without postictal state woke up immediately. MD complaint: other (anxiety attack) Onset (ago): hour(s) (1) Description of Episode: other (shaking anxiety) -: minutes(s) Witnessed: Yes - by Bystander Trauma: No Seizure History: No Possible Precipitating Event: stress Associated symptoms: denies other symptoms Treatments prior to arrival: none Related Data Home Medications ?Medication ?Instructions ?Recorded ?Confirmed trazodone 50 mg tablet 50 mg PO BEDTIME 04/27/21 03/29/23 amitriptyline 10 mg tablet 10 mg PO BEDTIME 03/29/23 03/29/23 atorvastatin 10 mg tablet 10 mg PO DAILY 03/29/23 03/29/23 divalproex 250 mg tablet,delayed 250 mg PO BID 03/29/23 03/29/23 release haloperidol 5 mg tablet 5 mg PO BID 03/29/23 03/29/23 hydroxyzine pamoate 50 mg capsule 50 mg PO BID PRN Anxiety 03/29/23 03/29/23 levothyroxine 100 mcg tablet 100 mcg PO DAILY@0600 03/29/23 03/29/23 lorazepam 1 mg tablet 1 mg PO TID 03/29/23 03/29/23 multivitamin 1 tab PO DAILY 03/29/23 03/29/23 sertraline 100 mg tablet 100 mg PO DAILY 03/29/23 03/29/23 Allergies Allergy/AdvReac Type Severity Reaction Status Date / Time No Known Allergies Allergy Verified 05/27/24 11:40 Review of Systems 2 Review of Systems: Constitutional : No Fever, No Chills, No Fatigue ENT/Mouth : No sore throat, No Rhinorrhea Eyes: No Eye Pain, No Swelling, No Redness Cardiovascular : No Chest Pain, No SOB, No Dyspnea on Exertion Respiratory : No Cough, No Sputum Gastrointestinal : No Nausea, No Vomiting, No Diarrhea, No abdominal Pain Genitourinary : No Dysuria, No Urinary Frequency, No Hematuria, Musculoskeletal : No joint pain, No Myalgias, No Joint Swelling Skin : No Skin Lesions, No rash Neuro : No Weakness, No Numbness, No Dizziness, no Headache Psych : pos Anxiety/Panic, No Depression All other systems reviewed and are negative [facility] Past Medical History Attestation statement: The following information was validated with the patient. 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 Oriented X3. No acute distress. Eyes: Pupils equal, round and reactive to light. ENT: Pharynx normal. atraumatic Neck: Normal inspection. Neck supple. CVS: Normal heart rate and rhythm. Pulses normal. Respiratory: No respiratory distress. Breath sounds normal. Abdomen: Soft and nontender. Skin: Skin warm and dry. Normal skin color. Normal skin turgor. Extremities: No lower extremity edema. No calf ttp Neuro: Oriented X 3. No motor deficit. No sensory deficit. Medical Decision Making Medical Decision Making MDM Narrative: 28 yo female with PMH of mood disorder, cognitive delay, HLD, hypothyroidism, here with c/o being upset that no one wanted to play dominoes with her so she had panic attack - no head strike back to baseline, no incontinence or tongue biting at this time stable for DC with mom. Has had similar episodes in past, doubt seizure Differential Diagnosis Differential Diagnoses: The differential diagnosis associated with the presentation includes anxiety attack Admission/Observation Consideration of admission/observation: Escalation of care including admission/observation considered at baseline no complaints stable for DC Lab Data MDM Lab Attestation statement: I reviewed the patient's lab results. 05/27/24 11:36 05/27/24 11:36 Labs: Lab Results 05/27/24 Range/Units 11:36 WBC 6.7 (4.8-10.8) X10*3/uL RBC 4.32 (4.20-5.50) X10*6/uL Hgb 13.3 (12.0-16.0) g/dl Hct 39.0 (37.0-47.0) % MCV 90.3 (80.0-98.0) fL MCH 30.8 (27.0-33.0) pg MCHC 34.1 (31.0-35.0) g/dl RDW 12.8 (11.0-16.0) % Plt Count 271 (160-400) X10*3/uL MPV 9.4 (9.4-12.3) fL Immature Gran % (Auto) 0.3 (0.0-0.4) % Neut % (Auto) 63.4 (45-73) % Lymph % (Auto) 26.9 (20-40) % [place] % (Auto) 8.3 (2-11) % Eos % (Auto) 0.6 (0-4) % Baso % (Auto) 0.5 (0-2) % Lymph # (Auto) 1.8 (1.2-4.9) X10*3/uL [place] # (Auto) 0.6 (0.1-1.2) X10*3/uL Eos # (Auto) 0.0 (0.0-0.4) X10*3/uL Baso # (Auto) 0.0 (0.0-0.2) X10*3/uL Abs Immat Gran (auto) 0.02 (0.00-0.03) X10*3/uL Absolute Neuts (auto) 4.2 (2.0-8.3) x10*3/uL Absolute Nucleated RBC 0.000 (0.0-0.012) X10*3/uL Nucleated RBC % (auto) 0.0 (0.0-0.2) /100WBC Sodium 138 (135-145) mmol/L Potassium 4.5 (3.3-5.1) mmol/L Chloride 105 (96-108) mmol/L Carbon Dioxide 21 L (22-29) mmol/L Anion Gap 17 (12-20) BUN 6 L (9-16) mg/dL Creatinine 0.73 (0.5-1.4) mg/dL Estim Creat Clear Calc 154.7 Estimated GFR > 60 Random Glucose 133 H (60-115) mg/dL Calcium 9.4 (8.4-10.2) mg/dL Total Bilirubin 0.3 (0.0-1.0) mg/dL AST 22 (5-31) U/L ALT 26 (0-31) U/L Alkaline Phosphatase 77 (39-117) U/L Total Protein 7.3 (6.5-8.0) g/dL Albumin 4.1 (3.5-5.0) g/dL Independent Historian Clinical information obtained from an independent historian. History obtained from or confirmed by: Parent and EMS External Record Review External record reviewed: Inpatient record Discharge Plan Discharge Clinical Impression: Panic attack Patient Disposition: Home, Self-Care Instructions: Panic Attack (ED) Additional Instructions: return for worsening symptoms or concerns stay with responsible adult will call if covid swab comes back positive Prescriptions: No Action trazodone 50 mg Tablet 50 mg PO BEDTIME multivitamin Tablet 1 tab PO DAILY haloperidol 5 mg tablet 5 mg PO BID divalproex 250 mg tablet,delayed release (DR/EC) 250 mg PO BID atorvastatin 10 mg tablet 10 mg PO DAILY sertraline 100 mg tablet 100 mg PO DAILY hydroxyzine pamoate 50 mg capsule 50 mg PO BID PRN (Reason: Anxiety) amitriptyline 10 mg tablet 10 mg PO BEDTIME lorazepam 1 mg tablet 1 mg PO TID levothyroxine 100 mcg tablet 100 mcg PO DAILY@0600 Print Language: [place]
[2024-05-27 12:29] LABS: Influenza A PCR NEGATIVE (Negative); Influenza B PCR NEGATIVE (Negative); Resp Syncy Virus RNA Qual PCR NEGATIVE (Negative); SARS COV2 PCR INHOUSE NEGATIVE (Negative)
[2024-05-27 12:31] VITALS: BP 120/62; PULSE 76; RESP 16; TEMP 37.4; O2SAT 99
== END 2024-05-27 12:32 | disposition home or self-care (01) ==
PROVIDERS: Emergency Provider Emergency Medicine; PCP Internal Medicine
DX: F41.0 Panic disorder [episodic paroxysmal anxiety] (principal); Z03.818 Encounter for observation for suspected exposure to other biological agents ruled out; F39 Unspecified mood [affective] disorder; E78.5 Hyperlipidemia, unspecified; Z79.02 Long term (current) use of antithrombotics/antiplatelets; Z79.899 Other long term (current) drug therapy
CPT/HCPCS: 0241U; 80053; 85025; 99283; 99284

== ENCOUNTER 2024-07-06 00:37 | Emergency (ER) | payer MEDICAID, SELFPAY ==
[2024-07-06 00:59] VITALS: BP 138/73; PULSE 84; RESP 18; TEMP 37; O2SAT 97; BMI 43.6
--- NOTE | 2024-07-06 01:21 | ED_ITS ---
HPI - General Adult General Chief complaint: Wound/Laceration Stated complaint: Finger Laceration Time Seen by Provider: 07/06/24 01:21 Source: patient Mode of arrival: ambulatory Limitations: no limitations History of Present Illness ED Provider: Valery Valdivia PA-C HPI narrative: Patient is a 29 year old assigned female at with a history of HLD presenting to the emergency department today with a right 3rd finger laceration. Patient states that she was cutting meat this evening and cut her right 3rd finger. Patient denies any dizziness, lightheadedness, abdominal pain, nausea, vomiting, fever, chills, blurry vision, double vision, loss of vision, chest pain, difficulty breathing, shortness of breath, back pain, night sweats, pain with urination, increased urinary frequency, increased urinary urgency, blood in her urine or stool, syncope or a near syncopal episode, recent trauma or falls, bowel incontinence, bladder incontinence, or any other complaints at this time. Patient states that she is not sure when she last got her tetanus but believes it was in the last 5 years. Relieving factors: none Exacerbating factors: none Associated symptoms: denies other symptoms Treatments prior to arrival: none Related Data Home Medications ?Medication ?Instructions ?Recorded ?Confirmed trazodone 50 mg tablet 50 mg PO BEDTIME 04/27/21 03/29/23 amitriptyline 10 mg tablet 10 mg PO BEDTIME 03/29/23 03/29/23 atorvastatin 10 mg tablet 10 mg PO DAILY 03/29/23 03/29/23 divalproex 250 mg tablet,delayed 250 mg PO BID 03/29/23 03/29/23 release haloperidol 5 mg tablet 5 mg PO BID 03/29/23 03/29/23 hydroxyzine pamoate 50 mg capsule 50 mg PO BID PRN Anxiety 03/29/23 03/29/23 levothyroxine 100 mcg tablet 100 mcg PO DAILY@0600 03/29/23 03/29/23 lorazepam 1 mg tablet 1 mg PO TID 03/29/23 03/29/23 multivitamin 1 tab PO DAILY 03/29/23 03/29/23 sertraline 100 mg tablet 100 mg PO DAILY 03/29/23 03/29/23 Previous Rx's ?Medication ?Instructions ?Recorded cephalexin 500 mg capsule 500 mg PO Q6H 7 days #28 caps 07/06/24 Allergies Allergy/AdvReac Type Severity Reaction Status Date / Time No Known Allergies Allergy Verified 07/06/24 00:59 Review of Systems Constitutional: Constitutional: Reports no additional constitutional complaints, Denies chills, Denies fever(s) and Denies night sweats Eyes: Eyes: Reports no additional eye complaints, Denies blurry vision, Denies change in vision, Denies diplopia, Denies eye discharge, Denies loss of vision and Denies eye pain ENT: Denies dizziness Cardiovascular: Cardiovascular: Reports no additional cardiovascular complaints, Denies chest pain, Denies lightheadedness, Denies Loss of Consciousness and Denies dyspnea Respiratory: Respiratory: Reports no additional respiratory complaints and Denies dyspnea Gastrointestinal: Gastrointestinal: Reports no additional gastrointestinal complaints, Denies abdominal pain, Denies melena, Denies hematochezia, Denies change in bowel habits and Denies change in stool character Genitourinary: Genitourinary: Denies hematuria, Denies urinary frequency, Denies dysuria, Denies urinary incontinence, Denies urinary hesitancy and Denies urinary urgency Musculoskeletal: Musculoskeletal: Reports no additional musculoskeletal complaints, Denies numbness and Denies tingling Comments: right 3rd finger laceration Neurologic: Denies dizziness, Denies loss of vision, Denies numbness and Denies tingling Psychiatric: Psychiatric: Reports no additional psychiatric complaints Endocrine: Endocrine: Reports no additional endocrine complaints Hematologic/Lymphatic: Hematologic/Lymphatic: Reports no additional hematologic/lymphatic complaints Allergic/Immunologic: Allergic/Immunologic: Reports no additional allergic/immunologic complaints [facility] Past Medical History Attestation statement: The following information was validated with the patient. Source: old records reviewed and nursing notes reviewed Medical History Mood disorder HLD (hyperlipidemia) Hypothyroid Cognitive developmental delay Social History Social History Household Members: Family Housing: Apartment Do you presently have visiting nurse or other home services: No Alcohol intake: never Patient Tobacco Use Status: Never used Tobacco Substance Use Type: Club/Solar [employer] Pv Drugs Advance Directives: No Advance Directives Information Provided: No service: No Current occupational status: disabled Physical Exam ED Vital Signs: Vital Signs - 24 hr 07/06/24 00:59 Temperature 98.6 F Pulse Rate 84 Respiratory Rate 18 Blood Pressure 138/73 Pulse Oximetry 97 Oxygen Delivery Method Room Air BMI result Body Mass Index 43.6 Const General: cooperative, no acute distress, alert and awake Nutritional Appearance: well nourished Orientation/consciousness: patient oriented x3 Limitations: no limitations HENMT Head: Yes normal to inspection and Yes atraumatic Ears: hearing grossly normal bilaterally and external ears normal General nose exam: Normal external nose present, no nasal discharge noted and no epistaxis Face and sinus: Yes normal facial exam, No abrasion and No laceration Mouth: Normal oral and palatal mucosa present, no drooling and no muffled voice Eyes General: appearance normal, both eyes and all related structures Periorbital: periorbital findings normal Eyelids: Yes eyelids normal Conjunctivae: conjunctivae normal Pupils: Equal, round and reactive pupils present EOM: EOMs intact bilaterally Neck Neck: Yes normal visual inspection, Yes full ROM and Yes no lymphadenopathy Chest Chest palpation & inspection: normal inspection of the chest Resp Effort & Inspection: normal respiratory effort and able to speak in complete sentences GI Inspection: Yes normal to inspection Neuro General: patient oriented x3 and moves all extremities Cranial nerves: Yes Equal, round and reactive pupils present Cognition (Neuro): normal cognition Extrem Other: right 3rd finger laceration, 1cm General: Yes full ROM and Yes capillary refill normal Psych Appearance: grossly normal Mental Status: mental status grossly normal Affect: normal affect Attitude: cooperative Thought process: Normal thought process present Thought content: Normal thought content present Insight: Good insight present (Psych) Medications Administered Discontinued Medications Generic Name Dose Route Start Last Admin Trade Name Freq PRN Reason Stop Dose Admin Lidocaine HCl 4 ml 07/06/24 01:31 07/06/24 01:38 Lidocaine Hcl 1 % 20 Ml Vial INFILTRATI 07/06/24 01:32 4 ml ONCE ONE Administration Procedures Laceration Laceration 1: Site: other (3rd finger) Side (If applicable): right Size (cm): 1 Description: linear Depth: simple, single layer Local Anesthetic: lidocaine 1% Amount of anesthesia used (mL): 4 Pre-repair: wound explored, irrigated extensively and deep structures intact Skin layer closed with: other (prolene) Size (cm): 5-0 Number of sutures: 3 Technique: simple, interrupted Medical Decision Making Medical Decision Making MDM Narrative: Patient is a 29 year old assigned female at with a history of HLD presenting to the emergency department today with a right 3rd finger laceration. Patient's physical exam was as noted in the physical exam portion of this note. I explained my physical exam findings to the patient. I answered all questions asked by the patient. Patient's laceration was repaired without incident. I stressed the importance of the patient taking her medication as directed (either prescribed or as the over the counter packaging recommends). I stressed the importance of the patient following up with her primary care provider. I stressed the importance of the patient returning to the emergency department immediately if her symptoms were to worsen or if she were to develop any dizziness, shortness of breath, difficulty breathing, chest pain, blurry vision, loss of vision, nausea, vomiting, abdominal pain, fever, chills, back pain, or any other complaints. Patient verbalized agreement and understanding with this treatment plan and discharge. Differential Diagnosis Differential Diagnoses: The differential diagnosis associated with the presentation includes Laceration Admission/Observation Consideration of admission/observation: Escalation of care including admission/observation considered Patient would have been admitted to the hospital had her clinical presentation warranted hospital admission. Prescription Management I considered prescription management with: Antibiotic (patient prescribed prophylactic antibiotic given the mechanism of injury) Discharge Plan Discharge Clinical Impression: Laceration of finger Patient Disposition: Home, Self-Care Instructions: Finger Laceration (ED) Additional Instructions: Unfortunately, your laceration has skin missing from the edges. The wound was approximated as best as possible given the missing skin component. You need to have your sutures removed in 7-10 days. Do NOT soak the affected area. Take your antibiotic as prescribed. Follow up with your primary care provider. Return to the emergency department immediately if your symptoms worsen or if you develop any dizziness, shortness of breath, difficulty breathing, chest pain, blurry vision, loss of vision, nausea, vomiting, abdominal pain, fever, chills, back pain, or any other complaints. Por desgracia, a hernández laceraci?n le falta piel en los bordes. La herida se aproxim? lo mejor posible dado el componente de piel que faltaba. Es necesario que le retiren los puntos en 7-10 d?as. NO moje la luis afectada. [place] el antibi?dominic que le hayan recetado. Marly un seguimiento con hernández m?dico de cabecera. Vuelva inmediatamente al servicio de urgencias si myrtle s?ntomas empeoran o si presenta mareos, falta de aliento, dificultad para respirar, dolor tor?cico, visi?n borrosa, p?rdida de visi?n, n?useas, v?mitos, dolor abdominal, fiebre, escalofr?os, dolor de espalda o cualquier otra molestia. Prescriptions: New cephalexin 500 mg capsule 500 mg PO Q6H 7 Days Qty: 28 0RF No Action trazodone 50 mg Tablet 50 mg PO BEDTIME multivitamin Tablet 1 tab PO DAILY haloperidol 5 mg tablet 5 mg PO BID divalproex 250 mg tablet,delayed release (DR/EC) 250 mg PO BID atorvastatin 10 mg tablet 10 mg PO DAILY sertraline 100 mg tablet 100 mg PO DAILY hydroxyzine pamoate 50 mg capsule 50 mg PO BID PRN (Reason: Anxiety) amitriptyline 10 mg tablet 10 mg PO BEDTIME lorazepam 1 mg tablet 1 mg PO TID levothyroxine 100 mcg tablet 100 mcg PO DAILY@0600 Referrals: [facility] [place] Family Medicine [Provider Group] (Call to establish and follow up with a primary care provider. If you already have a primary care provider, please follow up with them. Llame para establecer y hacer un seguimiento con un proveedor de atenci?n primaria. Si ya tiene un proveedor de atenci?n primaria, marly un seguimiento con ?l.) [facility] [place] [facility] Care[facility] [Provider Group] (Call to establish and follow up with a primary care provider. If you already have a primary care provider, please follow up with them. Llame para establecer y hacer un seguimiento con un proveedor de atenci?n primaria. Si ya tiene un proveedor de atenci?n primaria, marly un seguimiento con ?l.) [facility] [place] Primary Care,[facility] [Provider Group] (Call to establish and follow up with a primary care provider. If you already have a primary care provider, please follow up with them. Llame para establecer y hacer un seguimiento con un proveedor de atenci?n primaria. Si ya tiene un proveedor de atenci?n primaria, marly un seguimiento con ?l.) Stand Alone Forms: Work/School Release Interventions: ED Discharge Assessment Last Done: 07/06/24 02:18 Discharge Date/Time: 07/06/24 02:19 Print Language: Turkmen
[2024-07-06] MEDS: Lidocaine HCl 1 % 20 ML VIAL 4 ML INFILTRATI (01:38)
[2024-07-06 02:10] VITALS: BP 133/91; PULSE 75; RESP 16; TEMP 36.8; O2SAT 98
[2024-07-06 02:18] VITALS: BP 133/91; PULSE 75; RESP 16; TEMP 36.8; O2SAT 98
== END 2024-07-06 02:19 | disposition home or self-care (01) ==
PROVIDERS: Emergency Provider Emergency Medicine Emergency Medical Services
DX: S61.212A Laceration without foreign body of right middle finger without damage to nail, initial encounter (principal); W26.0XXA Contact with knife, initial encounter; Y93.89 Activity, other specified; Y92.9 Unspecified place or not applicable; Y99.9 Unspecified external cause status
CPT/HCPCS: 12001; 99283; 99284

== ENCOUNTER 2025-10-29 02:02 | Emergency (ER) | payer MEDICAID, SELFPAY ==
[2025-10-29 02:10] VITALS: BP 132/94; PULSE 103; O2SAT 98
[2025-10-29 02:13] VITALS: BP 130/74; PULSE 84; RESP 18; TEMP 37.1; O2SAT 99; BMI 39.5
[2025-10-29 02:47] LABS: Hematocrit 40.7 % (37.0-47.0); Hemoglobin 13.9 g/dl (12.0-16.0); Imm Gran Abs Auto 0.02 X10*3/uL (0.00-0.03); Imm Gran Pct Auto 0.3 % (0.0-0.4); Lymphocytes Absolute Auto 2.6 X10*3/uL (1.2-4.9); MANUAL DIFF FLAG NO; Mean Corpuscular HGB Conc 34.2 g/dl (31.0-35.0); Mean Corpuscular Hemoglobin 30.2 pg (27.0-33.0); Mean Corpuscular Volume 88.5 fL (80.0-98.0); NRBC Abs Auto 0.000 X10*3/uL (0.0-0.012); NRBC Pct Auto 0.0 /100WBC (0.0-0.2); Platelet Count 280 X10*3/uL (160-400); Red Blood Count 4.60 X10*6/uL (4.20-5.50); White Blood Count 7.4 X10*3/uL (4.8-10.8)
[2025-10-29 02:50] LABS: Appearance Urine Clear; Glucose Urine UA Negative (Negative); PH 6.5 (5.0-9.0); Specific Gravity - Urine 1.020 (1.005-1.025)
[2025-10-29 02:59] LABS: Cannabinoid Screen Urine Not Detected (Not Detect)
[2025-10-29 03:07] LABS: Acetaminophen LAB < 3 mcg/mL (<30); Alanine Aminotransferase 34 U/L (0-31); Albumin Level 4.5 g/dL (3.5-5.0); Alkaline Phosphatase 77 U/L (39-117); Anion Gap 15 (12-20); Aspartate Amino Transferase 24 U/L (5-31); Blood Urea Nitrogen 9 mg/dL (9-16); Calcium 9.6 mg/dL (8.4-10.2); Carbon Dioxide 24 mmol/L (22-29); Chloride 105 mmol/L (96-108); Creatinine Clr Calc Pharmacy 127.3; Estimated Glomerular Filt Rate > 60; Potassium 4.2 mmol/L (3.3-5.1); Salicylate < 5.0 mg/dL (15-30); Sodium 140 mmol/L (135-145); Total Protein 7.3 g/dL (6.5-8.0)
--- OUTSIDE RECORDS SUMMARY | 2025-10-29 03:57 | XMS_ITS | Encounter Summary ---
Author Organization [facility] Address [address] [place] [phone] Phone Care Team Providers Care Entry Operator Name Role Phone Maximino Stevens MD Primary Care Provider [phone] Maximino Stevens MD Unavailable [phone] Maximino Stevens MD Unavailable [phone] Reason for Visit * Reason Comments Medication Refill Encounter Details Date Type Department Care Team (Late st Contact Info) Description 06/18/2023 Refill [facility] [address] [place] [address] Henrik Baker, BEHAVIORAL HEALTH COUNSELOR [address] [place] [address] [email or web address] Medication Refill Social History Tobacco Use Types Packs/Day Years Used Date Smoking Tobacco: Never Smokeless Tobacco: Never Alcohol Use Standard Drinks/Week Comments Never 0 (1 standard drink = 0.6 oz pur e alcohol) Education Answer Date Recorded Are you interested in more education? Not on neema e 03/02/2023 Are you concerned about learning? Not on file 03/02/2023 No 03/02/2023 No 03/02/2023 Digital Access Answer Date Recorded No 03/27/2023 No 03/27/2023 Reliable internet access at home? Not on file 03/27/2023 Device with a working camera? Not on file Comments No Sex and Gender Information Value Date Recorded Sex Assigned at Not on file Legal Sex Female 1:12 PM EDT Gender Identity Not on file Sexual Orientation Not on file documented as of this encounter Progress Notes * Aldair Carlson NP - 06/18/2023 11:06 AM EDT Rx was sent to her pharmacy already. Receipt confirmed. * Ghazal Nettles LPN - 06/18/2023 10:58 AM EDT Rx Care Gap Status - Instructions for Clinical Staff (prescriber discretion applies): > At least one medication below does not meet full criteria. Please see medication-specific renewal instructions below. > Labs due: Remind patient to get lab tests done soon. > No new orders needed. Labs due for current Rx Request(s): ??? Lipid panel Labs due for other medications on list: ??? CBC ??? LFTs ??? Valproic acid level - Needs order * Visit Info ??? Last visit: 02/14/2023 (Maximino Stevens MD - [facility]) > Requested f/u: Return in about 6 months (around 08/16/2023) for f/u sleep issues. ??? Upcoming visit: 08/20/2023 (Maximino Stevens MD - [facility]) ACTIONS TAKEN BY Ghazal Nettles LPN - Refill protocol not met - Entered lab orders and reminded patient to do lab tests soon. - Reminded patient to do their existing labs orders soon. - Updated Rx duration per protocol Cholesterol Medication Rx Protocol - atorvastatin calcium Criteria not met; renew for up to 3 months. (unless patient is on high intensity statin, in which case LDL level may not be needed at provider discretion) ??? Visit in the past 12 months: Yes ??? Clinical criteria: - Lipid panel within past year: None (has active order) Lab Results Component Value Date LDL - External 94 05/23/2021 HDL - External 48 05/23/2021 Cholesterol, total - External 162 05/23/2021 Health Maintenance Labs Due / Due Soon Topic Date Due ??? VALPROIC ACID (DEPAKENE) LEVEL Never done documented in this encounter Plan of Treatment Upcoming Encounters Date Type Department Care Team (Late st Contact Info) Description 08/29/2026 10:00 AM EDT Office Visit [facility] [address] [place] [phone] Maximino Stevens MD [address] [place] [address], [address] [place] [address] documented as of this encounter Visit Diagnoses Not on filedocumented in this encounter Care Teams Entry Operator Relationship Specialty Start Date End Date Maximino Stevens MD [address] [place] [address], [address] [place] [phone] [email or web address] PCP - General Internal Medicine 05/25/21 Maximino Stevens MD [address] [place] [address], [address] [place] [id number] [email or web address] Insurance Assigned Provider 12/10/21 07/13/23 Maximino Stevens MD [address] [place] [address], [address] [place] [phone] [email or web address] Insurance Assigned Provider 09/18/25 documented as of this encounter Additional Source Comments The information contained in this document represents components of the legal health record. It is not the complete legal health record.[facility]
--- OUTSIDE RECORDS SUMMARY | 2025-10-29 03:57 | XMS_ITS | Clinical Summary ---
Author Organization [facility] Address [address] [address] Phone Care Team Providers Care Sign Out Clerk Name Role Phone Maximino Stevens MD Primary Care Provider [phone] Maximino Stevens MD Unavailable [phone] Allergies Active Allergy Reactions Criticality Noted Date Comments Tirzepatide 02/18/2025 Nausea, vomiting Medications diphenhydrAMINE (BENADRYL) 50 MG capsule Take 50 mg by mouth every 6 (six) hours as needed for itching. Active divalproex (DEPAKOTE ER) 500 MG ER 24 hr tablet Take 500 mg by mouth daily. Active haloperidoL (HALDOL) 5 MG tablet Take 5 mg by mouth 4 (four) times a day. Active LORazepam (ATIVAN) 1 MG tablet Take 1 mg by mouth every 8 (eight) hours as needed for anxiety. Active sertraline (ZOLOFT) 100 MG tablet Take 100 mg by mouth daily. Active amitriptyline (ELAVIL) 10 MG tablet 3 Active hydrOXYzine (VISTARIL) 50 MG capsule 3 Active tirzepatide, weight loss, (ZEPBOUND) 2.5 mg/0.5 mL subcutaneous penIndications:Cla ss 3 severe obesity due to excess calories with serious comorbidity and body mass index (BMI) of 40.0 to 44.9 in adult Inject 0.5 mL (2.5 mg total) under the skin every 7 days. 2 mL 3 4 Active norethindrone (MICRONOR) 0.35 mg tablet Take 1 tablet (0.35 mg total) by mouth daily. Micronor 1 tab po QD 84 tablet 3 5 Active levothyroxine (SYNTHROID, LEVOTHROID) 100 MCG tabletIndications: Acquired hypothyroidism TAKE 1 TABLET BY MOUTH EVERY MORNING 90 tablet 3 5 Active traZODone (DESYREL) 50 MG tablet Take 50 mg by mouth nightly at bedtime. Active silver sulfADIAZINE (SILVADENE) 1 % cream Apply topically daily. Active cholecalciferol (VITAMIN D3) 2,000 unit capsule TAKE ONE CAPSULE BY MOUTH DAILY 90 capsule 3 5 Active nicotine (NICODERM CQ) 7 mg/[address] 1 patch onto the skin daily for 28 days. If insomnia, remove at bedtime 28 patch 5 026 Active atorvastatin (LIPITOR) 10 MG tabletIndications: Hyperlipidemia, unspecified hyperlipidemia type TAKE 1 TABLET(10 MG) BY MOUTH DAILY 90 tablet 3 5 Active nicotine (NICODERM CQ) 14 mg/[address] 1 patch onto the skin daily. If insomnia, remove at bedtime 28 patch 1 5 025 Active Problems Problem Noted Date Diagnosed Date Tobacco dependence 08/24/2025 Overview (08/24/2025): 5 cigs/day Mom smokes also Counselled 12 min She agrees to patches, commits to quit Menorrhagia with regular cycle 12/22/2024 Assessment & Plan (12/22/2024 8:03 AM EST): Last month of frequent bleeding likely due to cessation of thyroid meds, explained the association, and she is not taking again Discussed options ot treat the long-standing menorrhagia, R&B and pros and cons of each, Rx sent P only OCP to avoid DVT risk If the frequent bleeding persists on this, they will call and I will order an US Morbid obesity with BMI of 45.0-49.9, adult 10/04 Assessment & Plan (10/13/2024 12:28 PM EST): This is a 29 YO patient who is interested in weight loss surgery, specifically the laparoscopic sleeve gastrectomy for weight loss. We have discussed gastric bypass and sleeve gastrectomy surgery in detail including risks, benefits, and alternatives. We have also discussed requirements preop and post op. They understands that they are required to lose about 10 percent of their current weight which is 25 lbs. The goal weight at the time of submission to the insurance company will be 227.6 pounds. In an effort to help the patient to lose weight I have prescribed an eating plan which will consist of a protein shake or a protein bar or Kazakh yogurt or cottage cheese to be consumed at 9 AM and 3 PM daily. The patient will consume 4 ounces of protein with 6 ounces of vegetable or small salad with a noncreamy salad dressing of not more than 2 tablespoons at 12 PM and 6 PM daily. At the 6 PM meal the patient may have 1/2 cup of carbohydrate. We have ordered required labs and testing. The patient will attend 5 nutrition classes, 2 appointments, and dietitian consultation. The patient will need to obtain a medical clearance letter from the primary care doctor prior to submission to the insurance company. The patient will see the dietitian in 2 and 4 weeks and I will follow up with them again in 6 weeks to ensure compliance with the meal plan. The patient will continue current medications as reviewed. They are not stable and are considered morbidly obese. I spent 93 minutes with this patient which also included documentation. Preoperative examination 10/13/2024 Tongue tie 02/18/2024 Overview (04/21/2024): Mom strongly desires repair. [facility] sugeon did not take her insurance I reiterated that she will need some speech therapy if she has the procedure. BRIANA (obstructive sleep apnea) 08/20/2023 Overview (08/20/2023): Dx 2022 Waiting for CPAP with Dr Rios Assessment & Plan (02/18/2024 10:57 AM EDT): Pt and her mother have refused CPAP Acquired hypothyroidism 08/20/2023 Delayed sleep phase syndrome 02/12/2023 Class 3 severe obesity due t o excess calories with serious comorbidity and body mass index (BMI) of 40.0 to 44.9 in adult 02/13/2022 Overview (02/13/2022): We discussed strategies for improving fitness and losing weight. Patient should concentrate on developing healthy habits of aerobic and light weight training exercise for 30-60 minutes, averaging at least 3-4 times a week. This should include light weight training, core strengthening, flexibility, and at least 30 minutes of aerobic exercise. Also try to cut down or eliminate carbohydrates and unnecessary calories from beverages. Assessment & Plan (08/24/2025 11:05 AM EDT): Still not exercising. Assessment & Plan (04/21/2024 3:21 PM EDT): She walks, but has not lost weight. Needs to cut carbs and calories. Self-injurious behavior 10/03/2021 Overview (10/03/2021): Mom reports history of long-term wrist cutting, multiple previous suicide attempts while in [place]. Bipolar affective disorder 10/03/2021 Seizure disorder 10/03/2021 Superficial burn of right lower leg 10/03/2021 Overview (10/03/2021): Well-healed, treated with Silvadene and Keflex by previous PCP over the last 2 months Cognitive impairment 10/03/2021 Overview (10/03/2021): I have very limited information so far. Mom is seeking guardianship so they do not get evicted from [facility]. Patient clearly needs close supervision, and apparently is getting set up with an intensive outpatient program through the [facility]. Hyperlipidemia Overview (05/15/2022): On low-dose Lipitor Encounters Date Type Department Care Team Description 09/06/2025 Refill [facility] [address] [place] [address] Maximino Stevens MD Medication Refill 08/24/2025 10:30 AM EDT Office Visit [facility] [address] [place] [address] Maximino Stevens MD Verea, Armando Annual physical exam (Primary Dx); Class 3 severe obesity due to excess calories with serious comorbidity and body mass index (BMI) of 40.0 to 44.9 in adult; Hyperlipidemia, unspecified hyperlipidemia type; Acquired hypothyroidism; Cognitive impairment; Bipolar affective disorder, remission status unspecified; Tobacco dependence; Tobacco use disorder 08/02/2025 [facility] RISK SCORES SYSTEM GENERATED External System Generated Encounter [address] [place] [address] Unknown, Unknown, from Last 3 Months Immunizations Immunization Administration Dates Next Due Influenza Quadrivalent MDCK Preservative Free IM 08/20/2022 Influenza Quadrivalent Preservative Free IM 07/05,10/12/2021 Influenza Trivalent MDCK Preservative Free IM Td (adult) 5 Lf Tetanus Toxoid, PF, Adsorbed Family History Medical History Relation Comments High cholesterol Mother Hypertension Mother Relation Status Comments Brother Alive Father Alive Mother Alive Sister Alive Social History Tobacco Use Types Packs/Day Years Used Date Smoking Tobacco: Every Day Cigarettes 0.5 1 Started: 2024; Last attempted to quit: 2015 Smokeless Tobacco: Never Tobacco Cessation:Counseling Given: Not Answered Alcohol Use Standard Drinks/Week Comments Never 0 (1 standard drink = 0.6 oz pur e alcohol) Child or Family Care Answer Date Record ed Do you have problems with on e of the following making it difficult for you to work, study, or receive health care? No 04/21/2024 Education Answer Date Recorded Are you interested in help w ith more adult education (for example, completing high school, GED, job training, learning the Green[place]ic language, technical skills, or developing parenting skills)? I choose not to answer 04/21/2024 Are you concerned about learning? Not on file 04/21/2024 No 04/21/2024 Yes 04/21/2024 Food Answer Date Recorded Within the past 6 months we worried whether our food would run out before we got money to buy more. I choose not to answer 04/21/2024 Within the past 6 months the food we bought just didn't last and we didn't have enough money to get more. I choose not to answer 04/21/2024 Residential Stability Answer Date Recor ded What is your housing situation today? I have esau parmar 04/21/2024 How many times have you move d in the past 12 months? I choose not to answer 04/21/2024 Paying for Meds Answer Date Recorded Do you have trouble paying for medicines? No 04/21/2024 Paying Utility Bills Answer Date Record ed Do you have trouble paying y our heating or electricity bill? I choose not to answer 04/21/2024 Transportation Answer Date Recorded Has the lack of transportati on kept you from medical appointments or from getting medications? I choose not to answer 04/21/2024 Unemployment Answer Date Recorded Are you currently unemployed or working on a part-time or temporary basis, and looking for work? No 04/21/2024 Digital Access Answer Date Recorded No 04/21/2024 No 04/21/2024 Do you have reliable internet access at home? I choose not to answer 04/21/2024 Do you have a device (e.g., phone, tablet, computer) with a working camera? I choose not to answer 04/21/2024 SNAP & WIC Answer Date Recorded Do you receive benefits from SNAP (the Supplemental Nutrition Assistance Program) or the Food Stamp Program? I choose not to answer 04/21/2024 SNAP is a free program, inte rested in learning more? Not on file 04/21/2024 Can we help you enroll in SNAP? Not on file 04/21/2024 Benefits received from WIC? Not on file 04/04 WIC is a free program, inter ested in learning more? Not on file 04/21/2024 Can we help you enroll in WIC? Not on file 0 04/21/2024 Intimate Partner Violence Answer Date R ecorded Denied Basic Needs Not on file 08/17/2025 In the past 12 months have y ou been in a relationship with a person who hurts, threatens, or tries to control you? No 08/17/2025 Worried food would run out Not on file 08/17 In the past 12 months have y ou been in a relationship with a person who hurts, threatens, or tries to control you? No 08/17/2025 Comments No Sex and Gender Information Value Date Recorded Sex Assigned at Not on file Legal Sex Female 1:12 PM EDT Gender Identity Not on file Sexual Orientation Not on file Last Filed Vital Signs Vital Sign Reading Time Taken Comments Blood Pressure 128/74 08/24/2025 10:29 AM EDT Pulse 80 08/24/2025 10:29 AM EDT Temperature 37.1 C (98.7 F) 08/24/2025 10:29 AM EDT Respiratory Rate 16 11/14/2021 12:02 PM EST Oxygen Saturation 99% 08/24/2025 10:29 AM EDT Inhaled Oxygen Concentration - - Weight 117.9 kg (260 lb) 08/24/2025 10:29 AM EDT Height 152.4 cm (5') 08/24/2025 10:29 AM EDT Body Mass Index 50.78 08/24/2025 10:29 AM EDT Plan of Treatment Upcoming Encounters Date Type Department Care Team (Late st Contact Info) Description 08/29/2026 10:00 AM EDT Office Visit [facility] [address] [place] [address] Maximino Stevens MD [address] [place] [address], [address] [place] [address] [email or web address] Health Maintenance Due Date Last Done Comments PNEUMOCOCCAL VACCINES (0-49 years) (1 of 2 - PCV) 2014 VALPROIC ACID (DEPAKENE) LEVEL 06/24/2024 06/24/2023 COVID-19 VACCINE ( season) 2025 03/13/2025, 08/08/2024, 08/18/2023, Additional history exists TSH LEVEL 02/18/2026 02/18/2025, 0606/2024, 08/20/2023, Additional history exists DEPRESSION SCREENING 08/17/2026 08/17/2025 SMOKING Hx and SMOKELESS TOBACCO SCREENING 08/24/2026 08/24/2025 PAP SMEAR 12/16/2027 12/16/2024, 04/03/2022 Adult Td,Tdap Booster 04/21/2034 04/21/2024 HEPATITIS C SCREENING Completed 08/20/2023, 023 HIV ONE-TIME SCREENING (18-65 YEARS) Completed 08/20/2023 INFLUENZA VACCINE Completed 08/22/2025, , 07/20/2023, Additional history exists HEPATITIS A VACCINES Aged Out No long er eligible based on patient's age to complete this topic HIB VACCINES Aged Out No longer eligi ble based on patient's age to complete this topic MENINGOCOCCAL VACCINES (ACWY) Aged Out No longer eligible based on patient's age to complete this topic MENINGOCOCCAL VACCINES (B) Aged Out N o longer eligible based on patient's age to complete this topic Medical Devices Not on file Procedures Procedure Name Priority Date/Time Associated Diagnosis Comments TSH WITH REFLEX Routine 02/18/2025 11:06 AM EDT Acquired hypothyroidism PAP TEST Routine 12/16/2024 12:00 AM EST HEPATITIS C ANTIBODY, QUALITATIVE Routine 08/20/2023 10:37 AM EDT Need for hepatitis C screening test VALPROIC ACID Routine 06/24/2023 12:41 PM EDT Seizure disorder from Last 3 Months or Most Recently Relevant to Health Maintenance Results * TSH with reflex (02/18/2025 11:06 AM EDT) TSH 0.74 0.27 - 4.20 uIU/mL [facility] Blood 02/18/2025 11:0 6 AM EDT 02/18/2025 11:08 AM EDT us Maximino Stevens MD LAB BLOOD BKR ORDERABLES Final Result [address] [address] * Pap Test (12/16/2024 12:00 AM EST) Report [address] [id number] Data Base Design Analyst: Maximino Noonan MD [employer] Cytology Report FINAL DIAGNOSIS A. PAP SMEAR (THIN PREP) CE: SPECIMEN ADEQUACY: Satisfactory for evaluation; transformation zone absent/insufficien t. INTERPRETATION: NEGATIVE FOR INTRAEPITHELIAL LESION OR MALIGNANCY. This specimen was analyzed by the automated ThinPrep Imaging System ([employer] and the selected taylor were reviewed by a greenhouse or nursery transplanter. Electronically Signed Out By: XAVIER Pool(ASCP) XAVIER Pope(ASCP) The Pap test is a screening test primarily for squamous cancers and precursors and has associated false-negative and false-positive results. New technologies such as liquid-based preparations may decrease but will not eliminate all false-negative results. Regular sampling and follow-up of unexplained clinical signs and symptoms are recommended to minimize false negative results. CLINICAL HISTORY Date of Last Menstrual Period: 11-06-2024 Menstrual History: Regular Bleeding, Abnormal: MENSES LASTED FULL MONTH Contraceptive History: BCPs Other Clinical Conditions: Screening Pap SPECIMEN SOURCE A: PAP SMEAR (THIN PREP) CE Patient Name: PABLO KHANNA : 1995 (Age: 29) Sex: F Institution: [facility] Location: [facility] Date of Collection: 12/16/2024 Date of Reported: 12/23/2024 16:21 Results to: Veronica Lemus MD [facility] Final Diagnosis A. PAP SMEAR (THIN PREP) CE: SPECIMEN ADEQUACY: Satisfactory for evaluation; transformation zone absent/insufficien t. INTERPRETATION: NEGATIVE FOR INTRAEPITHELIAL LESION OR MALIGNANCY. This specimen was analyzed by the automated ThinPrep Imaging System ([employer] and the selected taylor were reviewed by a greenhouse or nursery transplanter. [facility] Conversion Type (Conversion Source) 12/16/2024 12/17/2024 10:19 AM EST us Veronica Lemus MD CYTOLOGY ORDERABLES Edited Resul t - Final [address] [address] * Hepatitis C antibody, qualitative (08/20/2023 10:37 AM EDT) HCV NON-REACTIV E NON-REACTI VE [facility] Blood 08/20/2023 10:3 7 AM EDT 08/20/2023 10:42 AM EDT us Maximino Stevens MD LAB BLOOD BKR ORDERABLES Final Result Performing Organization Address City/[facility]/ZIP Co de Phone Number [address] [address] * (ABNORMAL) Valproic acid (06/24/2023 12:41 PM EDT) Pathologist [facility] VALPROIC ACID 19.1(L) 50.0 - 100.0 ug/mL [facility] Blood 06/24/2023 12:4 1 PM EDT 06/24/2023 12:47 PM EDT us Maximino Stevens MD LAB BLOOD BKR ORDERABLES Final Result Performing Organization Address [facility]/ZIP Co de Phone Number [address] [address] from Last 3 Months or Most Recently Relevant to Health Maintenance Insurance [facility] [place] [id number] [facility] Advance Directives For more information, please contact: [phone] (9AM - 5PM [facility], Saturday-Saturday) Documents on File Type Date Recorded 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 It is not the complete legal health record.[facility]
--- NOTE | 2025-10-29 06:58 | PC.NURSE ---
Zeenat Mora [phone], collateral contact. Available anytime and would lke a phone call.
--- NOTE | 2025-10-29 07:39 | ED.PSYCH ---
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 Chanel Floyd HPI Narrative: 30-year-old female with a known history of anxiety and depression who was brought to the ED by EMS from home for evaluation of suicidal ideation (SI). She reports the intrusive thoughts began earlier today around 0100 h and have been persistent (?they never get out of my head?), and that she has been experiencing these thoughts once a day. She describes recurrent ideas about ways to end her life and acknowledges grabbing a knife during the episode; her mother intervened and she states she did not harm herself and ?never did it again.? She denies any actual self-harm attempts. She sought help today because of the continuing thoughts and concern about causing distress to her parents. She last saw her therapist earlier this month. Current psychiatric medications (names not fully specified in interview) are taken for depression, ?aggressiveness,? and ?for brain.? Denies visual or auditory hallucinations, denies alcohol or drug use, and denies tobacco use. Patient mentions vitamin B3 use. No medication allergies reported. Related Data Home Medications ?Medication ?Instructions ?Recorded ?Confirmed trazodone 50 mg tablet 50 mg PO BEDTIME 04/27/21 03/29/23 amitriptyline 10 mg tablet 10 mg PO BEDTIME 03/29/23 03/29/23 atorvastatin 10 mg tablet 10 mg PO DAILY 03/29/23 03/29/23 divalproex 250 mg tablet,delayed 250 mg PO BID 03/29/23 03/29/23 release haloperidol 5 mg tablet 5 mg PO BID 03/29/23 03/29/23 hydroxyzine pamoate 50 mg capsule 50 mg PO BID PRN Anxiety 03/29/23 03/29/23 levothyroxine 100 mcg tablet 100 mcg PO DAILY@0600 03/29/23 03/29/23 lorazepam 1 mg tablet 1 mg PO TID 03/29/23 03/29/23 multivitamin 1 tab PO DAILY 03/29/23 03/29/23 sertraline 100 mg tablet 100 mg PO DAILY 03/29/23 03/29/23 Previous Rx's ?Medication ?Instructions ?Recorded cephalexin 500 mg capsule 500 mg PO Q6H 7 days #28 caps 07/06/24 Allergies Allergy/AdvReac Type Severity Reaction Status Date / Time No Known Allergies Allergy Verified 10/29/25 02:18 Review of Systems Review of Systems: as per HPI, full review of systems performed and negative but for the above mentioned pertinent positives and negatives. 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 SKIN: Normal skin color for ethnicity, warm, dry, no rashes noted. HEENT:? Normocephalic, atraumatic, no stridor, posterior oropharynx nonerythematous, dentition intact, EOMI. NECK: Soft, supple, full ROM, midline structures nontender, no step-offs, no deformities, no lymphadenopathy. CHEST: Heart regular rate and rhythm, no murmurs, symmetric chest rise and fall. PULMONARY: Clear to auscultation bilaterally, no labored breathing, no wheezes/rhales/rhonchi. ABDOMINAL: Soft, nondistended, nontender, positive bowel sounds in all quadrants. : Deferred. MUSCULOSKELETAL: Normal tone, full range of motion, no deformities, no peripheral edema. NEURO: Alert and oriented x3, CN II through XII intact, equal strength and sensation bilateral upper and lower extremities, no focal neurologic deficits.? PSYCHIATRIC: Flat affect, poor eye contact, withdrawn Vital Signs: Vital Signs: Last Vital Signs Temp 98.7 F 10/29/25 02:13 Pulse 84 10/29/25 02:13 Resp 18 10/29/25 02:13 BP 130/74 10/29/25 02:13 Pulse Ox 99 10/29/25 02:13 O2 Del Method Room Air 10/29/25 02:13 BMI result Body Mass Index 39.5 Course Course Course Narrative: 10/29/2025 0936 Valery Valdivia PA-C ---> Patient evaluated by the CARE Team. They recommended discharge with follow up with her psychiatrist for possible medication adjustment. Contracts for safety. Observation ended at 0936 on 10/29/2025. Medications Administered Discontinued Medications Generic Name Dose Route Start Last Admin Trade Name Bassam PRN Reason Stop Dose Admin Melatonin 6 mg 10/29/25 04:38 10/29/25 04:45 Melatonin 3 Mg Tablet PO 10/29/25 04:39 6 mg ONCE ONE Administration Medical Decision Making Medical Decision Making [facility] Narrative: 30-year-old female with chronic anxiety and depression, presenting with acute suicidal ideation without attempt. Differential diagnosis includes suicidal ideations, homicidal ideations, depression, anxiety, mood disorder, decompensated mental illnesses such as schizophrenia or bipolar disorder, medication noncompliance, among many others. Medical clearance protocol was initiated. Problem #1: Suicidal Ideation in the setting of anxiety/depression Assessment: Acute persistent SI beginning early this morning; no attempt, but patient grabbed a knife briefly. No hallucinations or substance use reported. Protective factors include desire to avoid family distress and willingness to seek help. Plan: - Care team consult in ED for further evaluation and disposition. - Continue close observation and safety precautions while awaiting psychiatric team. - Coordinate plan with patient?s outpatient psychiatrist and family. - Patient to rest in ED; re-evaluate after psychiatric assessment to determine need for admission versus outpatient plan. Problem #2: Chronic Anxiety/Depression Assessment: History of mood and anxiety disorder managed with therapy and psychotropic medications; currently symptomatic with exacerbation manifesting as SI. Plan: - As above Differential Diagnosis Differential Diagnoses: The differential diagnosis associated with the presentation includes (as above) Admission/Observation Consideration of admission/observation: Escalation of care including admission/observation considered Consult Healthcare Provider Management of the patient was discussed with: Behavioral Health Provider Lab Data [facility] Lab Attestation statement: I reviewed the patient's lab results. 10/29/25 02:39 10/29/25 02:39 Labs: Lab Results 10/29/25 Range/Units 02:39 WBC 7.4 (4.8-10.8) X10*3/uL RBC 4.60 (4.20-5.50) X10*6/uL Hgb 13.9 (12.0-16.0) g/dl Hct 40.7 (37.0-47.0) % MCV 88.5 (80.0-98.0) fL MCH 30.2 (27.0-33.0) pg MCHC 34.2 (31.0-35.0) g/dl RDW 12.2 (11.0-16.0) % Plt Count 280 (160-400) X10*3/uL MPV 9.5 (9.4-12.3) fL Immature Gran % (Auto) 0.3 (0.0-0.4) % Neut % (Auto) 55.0 (45-73) % Lymph % (Auto) 35.3 (20-40) % [place] % (Auto) 8.2 (2-11) % Eos % (Auto) 0.8 (0-4) % Baso % (Auto) 0.4 (0-2) % Lymph # (Auto) 2.6 (1.2-4.9) X10*3/uL [place] # (Auto) 0.6 (0.1-1.2) X10*3/uL Eos # (Auto) 0.1 (0.0-0.4) X10*3/uL Baso # (Auto) 0.0 (0.0-0.2) X10*3/uL Abs Immat Gran (auto) 0.02 (0.00-0.03) X10*3/uL Absolute Neuts (auto) 4.1 (2.0-8.3) x10*3/uL Absolute Nucleated RBC 0.000 (0.0-0.012) X10*3/uL Nucleated RBC % (auto) 0.0 (0.0-0.2) /100WBC Sodium 140 (135-145) mmol/L Potassium 4.2 (3.3-5.1) mmol/L Chloride 105 (96-108) mmol/L Carbon Dioxide 24 (22-29) mmol/L Anion Gap 15 (12-20) BUN 9 (9-16) mg/dL Creatinine 0.76 (0.5-1.4) mg/dL Estim Creat Clear Calc 127.3 Estimated GFR > 60 Random Glucose 109 (60-115) mg/dL Calcium 9.6 (8.4-10.2) mg/dL Total Bilirubin 0.2 (0.0-1.0) mg/dL AST 24 (5-31) U/L ALT 34 H (0-31) U/L Alkaline Phosphatase 77 (39-117) U/L Total Protein 7.3 (6.5-8.0) g/dL Albumin 4.5 (3.5-5.0) g/dL Beta HCG, Quant < 2 mIU/mL Urine Color Yellow Urine Appearance Clear Urine pH 6.5 (5.0-9.0) Ur Specific [place] 1.020 (1.005-1.025) Urine Protein Negative (Neg-Trace) mg/dL Urine Glucose (UA) Negative (Negative) mg/dL Urine Ketones Trace (Negative) mg/dL Urine Blood Negative (Negative) Urine Nitrite Negative (Negative) Ur Leukocyte Esterase Negative (Negative) Urine RBC 0-2 (0-2) /HPF Urine WBC 0-5 (0-5) /HPF Ur Squamous Epith Cells 0-2 (0-2) /HPF Urine Bacteria 1+ (None Seen) Hyaline Casts 0-2 (0-2) /LPF Salicylates < 5.0 L (15-30) mg/dL Urine Opiates Screen Not Detected (Not Detect) Ur Buprenorphine Scrn Not Detected (Not Detect) ng/mL Ur Oxycodone Screen Not Detected (Not Detect) ng/mL Urine Methadone Screen Not Detected (Not Detect) ng/mL Urine Fentanyl Screen Not Detected (Not Detect) Acetaminophen < 3 (<30) mcg/mL Ur Barbiturates Screen Not Detected (Not Detect) Ur Phencyclidine Scrn Not Detected (Not Detect) Ur Amphetamines Screen Not Detected (Not Detect) U Benzodiazepines Scrn Not Detected (Not Detect) Urine Cocaine Screen Not Detected (Not Detect) U Marijuana (THC) Screen Not Detected (Not Detect) Ethyl Alcohol < 10 mg/dL Independent Historian Clinical information obtained from an independent historian. History obtained from or confirmed by: EMS External Record Review External record reviewed: Inpatient record Chronic Conditions Patient?s care impacted by: Other (Anxiety, depression, intellectual delay) Social Determinants Patient?s care significantly limited by Social Determinants of Health including: Other Social Determinant of Health Discharge Plan Discharge Clinical Impression: Depression Qualifiers: Depression Type: other depression Qualified Code(s): F32.89 - Other specified depressive episodes Patient Disposition: Home, Self-Care Instructions: Depression (ED) Additional Instructions: You were seen for a concern regarding your mental / behavioral behavioral health. It is important after this visit today that you follow up with either your mental / behavioral health or primary care provider within 7 days (from today).? Return for any worsening symptoms or concerns such as thoughts of harming yourself or others. Please call 911 immediately if you feel your mental health is worsening.? [place] [facility] Lifeline: Available 24 hours a day, 7 days a week, 365 days a year Dial 988 with any telephone to speak to someone immediately [facility] (Mental / Behavioral health therapist: [address], [place] [phone] [facility]: [address] [place] [address] [phone] Open from 10am - 12pm (walk ins welcome) [facility] Crisis Services: [address] [place] [address] Walk in hours from 10am - 12pm Behavioral health Network: [address] [place] [phone] AND [address] [place] [address] [phone] Saturday through Saturday 8am - 8pm Saturday and Saturday 9am - 5pm IF you are prescribed medications and/or you are taking over the counter medications - it is very important you continue to do so as prescribed / directed unless told otherwise. Follow up with your primary care provider. Return to the emergency department immediately if your symptoms worsen or if you develop any numbness, tingling, dizziness, shortness of breath, difficulty breathing, chest pain, blurry vision, loss of vision, nausea, vomiting, abdominal pain, fever, chills, back pain, or any other complaints. Prescriptions: No Action trazodone 50 mg Tablet 50 mg PO BEDTIME cephalexin 500 mg capsule 500 mg PO Q6H 7 Days Qty: 28 0RF multivitamin Tablet 1 tab PO DAILY haloperidol 5 mg tablet 5 mg PO BID divalproex 250 mg tablet,delayed release (DR/EC) 250 mg PO BID atorvastatin 10 mg tablet 10 mg PO DAILY sertraline 100 mg tablet 100 mg PO DAILY hydroxyzine pamoate 50 mg capsule 50 mg PO BID PRN (Reason: Anxiety) amitriptyline 10 mg tablet 10 mg PO BEDTIME lorazepam 1 mg tablet 1 mg PO TID levothyroxine 100 mcg tablet 100 mcg PO DAILY@0600 Referrals: Maximino Stevens MD [Primary Care Provider, Medical] Interventions: Dana-Suicide Risk Severity Scale Last Done: 10/29/25 02:57 Print Language: Occitan
--- NOTE | 2025-10-29 09:54 | MHC.CARE ---
Pt does not meet the criteria for IPLOC and will D/C to follow up with CP. ED provider in agreement.
[2025-10-29 10:17] VITALS: BP 130/74; PULSE 84; RESP 18; TEMP 37.1; O2SAT 99
== END 2025-10-29 10:26 | disposition home or self-care (01) ==
PROVIDERS: Emergency Provider Emergency Medicine; PCP Internal Medicine
DX: F32.89 Other specified depressive episodes (principal); R45.851 Suicidal ideations; I10 Essential (primary) hypertension; F88 Other disorders of psychological development
CPT/HCPCS: 36415; 80053; 80143; 80179; 80307; 81001; 84702; 85025; 99284; S9485